=== PATIENT | male | born 1940 | race Two or more races ===

== ENCOUNTER 2020-03-22 06:42 | Emergency (ER) | payer MEDICARE, OTHER, SELFPAY ==
[2020-03-22 06:43] VITALS: BP 212/82; PULSE 89; RESP 24; TEMP 37; O2SAT 97; BMI 35.6
[2020-03-22 06:47] VITALS: O2SAT 99
--- NOTE | 2020-03-22 07:03 | RAD_ITS ---
STUDY: X-RAY CHEST REASON FOR EXAM: Male, 79 years old new onset of shortness of breath this morning. History of COPD. TECHNIQUE: Single AP portable view of the chest. COMPARISON: October 03, 2016. FINDINGS: Cardiac monitoring leads are present. The lungs are hyperexpanded with prominence of bronchovascular markings. There is a nodular opacity left lung base measuring There is no demonstrated pleural abnormality. There is mild cardiac enlargement. Normal mediastinum and crystal. There is prominence of the pulmonary hilar arteries with peripheral pulmonary vascular congestion, suggesting pulmonary hypertension. There is atherosclerotic calcification of the aortic arch with tortuosity. There are diffuse degenerative changes of the visualized thoracic spine. Normal visualized ribs, clavicles, and shoulders. There is no demonstrated abnormality of the visualized soft tissue structures of the upper abdomen. RAD/Chest 1 View (Portable) IMPRESSION: Cardiomegaly and pulmonary edema. Electronically Signed: Barbara Daigle MD at 8:24 EDT , Service support ,
--- NOTE | 2020-03-22 07:03 | EKG12_ITS ---
Test Reason : DYSRHYTHMIA Blood Pressure : / mmHG Vent. Rate : 072 BPM Atrial Rate : 072 BPM P-R Int : 248 ms QRS Dur : 108 ms QT Int : 384 ms P-R-T Axes : 006 -59 087 degrees QTc Int : 420 ms Sinus rhythm with 1st degree A-V block Left axis deviation Abnormal ECG Confirmed by ALEJANDRA DEWITT, ALEIDA ([id number]), desk editor ROD MAYO ([id number]) on 03/25/2020 9:21:57 AM Referred By: Confirmed By:ALEIDA ROBERTS MD
[2020-03-22 07:10] LABS: Absolute Lymphocyte Count 3.96 X10^3/uL (0.83-4.51); Absolute Neutrophil Count 7.3 X10^3/uL (2.0-7.7); Basophil% 0.8 % (0-1); Eosinophil# 0.45 X10^3/uL; Eosinophils% 3.5 % (0-5); Hematocrit 40.1 % (40-54); Hemoglobin 12.3 g/dL (13.0-16.5); Lymphocyte # 3.96 X10^3/ul (4.0); Lymphocyte % 30.8 % (19-41); Mean Corp Hgb Conc 30.7 g/dL (32-36); Mean Corpuscular Hgb 24.6 pg (27.0-32.0); Mean Corpuscular Volume 80.4 fL (80-94); Mean Platelet Vol. 9.8 fl (6.2-12.0); Monocyte# 1.03 X10^3/uL; NRBC Flagged by Analyzer 0 % (0-5); Neutrophil # 7.27 X10^3/uL (2.7-7.7); Neutrophil % 56.6 % (47-70); Platelet Count 346 K/mm3 (150-450); RBC Distribution Width SD 51.8 fl (35.1-43.9); Red Blood Count 4.99 M/mm3 (4.6-6.2); White Blood Count 12.9 K/mm3 (4.4-11.0)
--- NOTE | 2020-03-22 07:13 | ED.VIS.GEN ---
History of Present Illness Chief Complaint: Shortness of Breath Informant: Patient Onset: Today Narrative: Patient presents to the emergency room with his for the chief complaint of shortness of breath. Patient states that approximately 0530 hours he got up to urinate when he got back to bed he was significantly short of breath. It did not resolve with rest. He notes no change in his chronic cough. He has a history of COPD diabetes obstructive sleep apnea and peripheral vascular disease. Denies any fevers. He denies any chest pain. No significant leg swelling. Patient denies vomiting diarrhea. He denies any URI symptoms. He has not yet taken his morning medications but his brought them with him. These include his hypertensive medications. Past Medical History - Allergies and Home Meds Allergies/Adverse Reactions: Allergies colesevelam HCl [From WelChol] Adverse Reaction (Verified 06/30/18 13:31) Unknown Awmpdix-Rtk-Axk Reductase Inhibitor Adverse Reaction (Verified 06/30/18 13:31) Other LEG CRAMPS Primary Care Physician: Joe Vicente III, MD [Primary Care Provider] - As soon as possible Surgical History: - - right carotid artery surgey. Smoking Status: Current every day smoker - Family History Maternal Family History: Family History (Last Updated 06/30/18 @ 13:30 by Zahraa Londono) Sister Cancer Family History: Reports: - - hepatitis Paternal Family History: Family History (Last Updated 06/30/18 @ 13:30 by Zahraa Londono) Sister Cancer Family History: Reports: - - father had ruptured appendix Review of Systems General: Denies: Chills, Fever, Sweats Eyes: Denies: Visual changes - bilaterally, Diplopia ENT: Denies: Rhinorrhea, Sore throat Cardiovascular: Denies: Chest pain, Palpitations Respiratory: Reports: Dyspnea, Cough - No change from baseline, Dyspnea on exertion Gastrointestinal: Denies: Abdominal pain, Nausea, Vomiting, Diarrhea, Melena, Hematochezia Genitourinary: Denies: Dysuria, Hematuria, Frequency Musculoskeletal: Denies: Back pain, Extremity Pain Skin: Denies: Rash, Wounds Neurological: Denies: Headache, Weakness, Numbness Physical Exam Vital Signs/Narrative: Vital Signs Temp Pulse Resp BP Pulse Ox 03/22/20 06:43 98.6 F 89 24 H 212/82 H 97 Inital Vital Signs reviewed: Yes General: Well nourished, Well developed, Obese, No Acute Distress Head: Normocephalic, Atraumatic Eyes: Perrl, EOMI ENT: Moist mucous membranes, No rhinorrhea Neck: Supple, Nontender Cardiovascular: Regular rate, Regular rhythm, No murmurs Respiratory: CTA bilaterally, Chest nontender, Decreased Air Movement, - - Patient is tachypneic but not in distress he has conversational dyspnea Abdomen: Soft, Nontender, Nondistended, Normal bowel sounds Back: Nontender, Normal Inspection Extremities: Nontender, No edema Skin: Normal color, No rash Neurological: Alert, Oriented x3, Cranial nerves II-XII grossly intact, Normal Strength, Normal Sensation Psychological: Normal affect, Normal Mood Diagnostic/Tx/Re-eval Clinical Impression(s) from Imaging Studies Chest X-Ray 03/22/20 07:03 IMPRESSION: Cardiomegaly and pulmonary edema. Electronically Signed: Barbara Daigle MD at 8:24 EDT , Service support , Chest CTA 03/22/20 08:25 IMPRESSION: 1. No CTA demonstrated pulmonary embolism or arterial dissection. 2. Right lower lobe pulmonary nodule. Suggest follow-up as per Fleischner criteria. 3. Cardiomegaly and mild pulmonary edema. Electronically Signed: Barbara Daigle MD at 9:57 EDT , Service support , Laboratory Last Values WBC 12.9 K/mm3 (4.4-11.0) H 03/22/20 06:30 RBC 4.99 M/mm3 (4.6-6.2) 03/22/20 06:30 Hgb 12.3 g/dL (13.0-16.5) L 03/22/20 06:30 Hct 40.1 % (40-54) 03/22/20 06:30 MCV 80.4 fL (80-94) 03/22/20 06:30 MCH 24.6 pg (27.0-32.0) L 03/22/20 06:30 MCHC 30.7 g/dL (32-36) L 03/22/20 06:30 RDW Std Deviation 51.8 fl (35.1-43.9) H 03/22/20 06:30 RDW Coeff of Teresa 18.0 % (11.6-14.6) H 03/22/20 06:30 Plt Count 346 K/mm3 (150-450) 03/22/20 06:30 MPV 9.8 fl (6.2-12.0) 03/22/20 06:30 Immature Gran % (Auto) 0.300 % (0.0-0.9) 03/22/20 06:30 Neut % (Auto) 56.6 % (47-70) 03/22/20 06:30 Lymph % (Auto) 30.8 % (19-41) 03/22/20 06:30 Clark % (Auto) 8.0 % (0-10) 03/22/20 06:30 Eos % (Auto) 3.5 % (0-5) 03/22/20 06:30 Baso % (Auto) 0.8 % (0-1) 03/22/20 06:30 Absolute Neuts (auto) 7.3 X10^3/uL (2.0-7.7) 03/22/20 06:30 Absolute Lymphs (auto) 3.96 X10^3/uL (0.83-4.51) 03/22/20 06:30 Nucleated RBC % 0 % (0-5) 03/22/20 06:30 PT 13.0 SECONDS (11.7-14.9) 03/22/20 06:30 INR 1.0 03/22/20 06:30 APTT 31.9 Seconds (24.1-36.2) 03/22/20 06:30 Sodium 139 mmol/L (136-145) 03/22/20 07:45 Potassium 4.8 mmol/L (3.5-5.1) 03/22/20 07:45 Chloride 107 mmol/L (98-107) 03/22/20 07:45 Carbon Dioxide 24.0 mmol/L (21.0-32.0) 03/22/20 07:45 Anion Gap 8 (5-15) 03/22/20 07:45 BUN 14 mg/dL (7-18) 03/22/20 07:45 Creatinine 0.85 mg/dL (0.70-1.30) 03/22/20 07:45 Estim Creat Clear Calc 77.51 ml/min 03/22/20 07:45 Est GFR (MDRD) Af Amer 112 mL/min (>60) 03/22/20 07:45 Est GFR (MDRD) Non-Af 93 mL/min (>60) 03/22/20 07:45 BUN/Creatinine Ratio 16.5 RATIO (10-20) 03/22/20 07:45 Glucose 134 mg/dL (74-106) H 03/22/20 07:45 Calcium 8.7 mg/dL (8.5-10.1) 03/22/20 07:45 Total Bilirubin 0.20 mg/dL (0.20-1.00) 03/22/20 07:45 Direct Bilirubin 0.07 mg/dL (0.00-0.30) 03/22/20 07:45 AST 8 U/L (15-37) L 03/22/20 07:45 ALT 15 U/L (16-61) L 03/22/20 07:45 Alkaline Phosphatase 79 U/L (45-117) 03/22/20 07:45 Troponin I < 0.015 ng/mL (<0.045) 03/22/20 07:45 B-Natriuretic Peptide 58.0 pg/mL (0-100) 03/22/20 06:30 Total Protein 7.2 g/dL (6.4-8.2) 03/22/20 07:45 Albumin 3.2 g/dL (3.2-5.0) 03/22/20 07:45 Globulin 4.0 g/dL (2.2-4.2) 03/22/20 07:45 POC Glucose 124 mg/dL (70-110) H 03/22/20 10:27 - EKG Initial EKG Interpretation: Sinus Rhythm - EKG demonstrates a sinus rhythm with a first-degree AV block at a rate of 72 without concerning features of ACS or ectopy - Medical Decision Making She received breathing treatments. He was given his home antihypertensive medications. Blood pressure is down. Lung aeration is improved he ambulated down the hallway and around the emergency department maintain his oxygen saturation until he got back to his room when he dropped to 89%. Because the patient has sudden onset of symptoms and it appeared to be an unprovoked COPD exacerbation a CTA was ordered. No pulmonary embolism or infiltrates were seen. There was a pulmonary nodule that was noted. The patient is asking to be discharged home because he is hungry. When I write him albuterol MDI because he does not have a rescue inhaler. He may benefit from having nebulizer machine at home. ED Disposition - Plan for ED Patient: Disposition: Home or Assisted Living Diagnosis: COPD exacerbation, Hypertension, Pulmonary nodule Instructions: ED COPD Flare, ED Nodule Solitary Pulmonary Prescriptions: Prednisone [Deltasone] 60 mg PO DAILY #15 tab Transmission Status: Pending to [facility] Albuterol Inhaler [Ventolin Hfa] 2 puff INHALATION Q4H PRN PRN #1 inhaler PRN Reason: Wheezing Transmission Status: Pending to [facility] Referrals: Joe Vicente III, MD [Primary Care Provider] - As soon as possible Additional Instructions: Please call your doctor on Tuesday morning and discuss whether or not you would qualify for a albuterol nebulizer machine. Return if worsening or concerns. Many people with COPD exacerbations do require admission into the hospital.
[2020-03-22 07:20] VITALS: PULSE 68; RESP 24; RESP 26; O2SAT 96
[2020-03-22] MEDS: Ipratropium/Albuterol Sulfate 3 ML AMPUL.NEB INHALATION (07:20)
[2020-03-22 07:22] LABS: Partial Thromboplast Time 31.9 Seconds (24.1-36.2)
[2020-03-22] MEDS: Albuterol 2.5 MG/3 ML VIAL.NEB. INHALATION ×3 (07:36)
--- NOTE | 2020-03-22 07:37 | NURSING ---
GREEN TOP HEMOLIZED
[2020-03-22 08:19] LABS: AST(SGOT) 8 U/L (15-37); Alanine Aminotransfer ALT/SGPT 15 U/L (16-61); Albumin, Serum 3.2 g/dL (3.2-5.0); Alkaline Phosphatase 79 U/L (45-117); Anion Gap 8 (5-15); BUN 14 mg/dL (7-18); BUN/Creat Ratio 16.5 RATIO (10-20); Bilirubin, Direct 0.07 mg/dL (0.00-0.30); Calcium,Total 8.7 mg/dL (8.5-10.1); Chloride 107 mmol/L (98-107); Creatinine, Serum 0.85 mg/dL (0.70-1.30); EST Glomerular Filtration Rate 93 mL/min (>60); Est Glom Filt Rate - Afr Amer 112 mL/min (>60); Estimated Creatinine Clearance 77.51 ml/min; Glucose 134 mg/dL (74-106); Potassium 4.8 mmol/L (3.5-5.1); Protein, Total 7.2 g/dL (6.4-8.2); Sodium Level 139 mmol/L (136-145)
--- NOTE | 2020-03-22 08:25 | CT_ITS ---
STUDY: CTA CHEST REASON FOR EXAM: Male, 79 years old patient with shortness of breath and COPD. RADIATION DOSAGE (If Supplied By Facility): CTDIvol = ( 16.22 ) mGy, DLP = ( 532.63 ) mGycm TECHNIQUE: The examination was performed with the intravenous administration of 100 ml of Isovue 370. Post-processing of the angiographic images was performed, with multiplanar reformation and 3D reconstruction. Individualized dose optimization techniques were used for this CT. COMPARISON: Prior comparison studies are not available for review at this time. FINDINGS: Normal enhancement of the main pulmonary artery and right and left pulmonary arteries. Normal enhancement of the bilateral peripheral pulmonary arteries. There is no demonstrated pulmonary embolism. There is prominence of the main pulmonary arteries without peripheral pulmonary vascular congestion, suggesting pulmonary hypertension. There is atherosclerotic calcification of the aortic arch with tortuosity. Maximum transverse dimension of the ascending thoracic aorta is 4.0 cm. There is no demonstrated aortic dissection. Normal heart and pericardium. There are multiple hyperplastic mediastinal lymph nodes, which are within normal size limits, and with normal morphology. Normal hilar regions. Normal visualized trachea and bronchi. The lungs are hyper expanded, with flattening of the hemidiaphragms. There are multiple patchy lucencies scattered in the upper lobes consistent with centrilobular emphysema. There is groundglass attenuation in the posterior segments of the lower lobes that may present dependent atelectasis. There is a right lower lobe pulmonary nodule measuring approximately 10 mm in size best seen on axial image #71. There appears to be some interstitial thickening in both lower lobes as well. The curvilinear opacities in the right middle lobe versus patchy airspace disease. Normal pleura. Normal chest wall structures. There are degenerative changes of thoracic spine. There is reflux of contrast into the hepatic veins suggesting pulmonary congestion. CT/CTA Chest W/WO Contrast IMPRESSION: 1. No CTA demonstrated pulmonary embolism or arterial dissection. 2. Right lower lobe pulmonary nodule. Suggest follow-up as per Fleischner criteria. 3. Cardiomegaly and mild pulmonary edema. Electronically Signed: Barbara Daigle MD at 9:57 EDT , Service support ,
--- NOTE | 2020-03-22 08:49 | CPS ---
x3 Albuterol given to pt. in ED as well
[2020-03-22 09:44] VITALS: BP 144/52; PULSE 70; RESP 22; O2SAT 100
[2020-03-22 10:13] VITALS: O2SAT 95
[2020-03-22 10:31] LABS: Bedside Glucose 124 mg/dL (70-110)
[2020-03-22] MEDS: MethylPREDNISolone 125 MG/2 ML Vial IV (10:56)
[2020-03-22 11:05] VITALS: BP 142/75; PULSE 68; RESP 19; O2SAT 94
== END 2020-03-22 11:06 | disposition home or self-care (01) ==
PROVIDERS: Emergency Provider Emergency Medicine; PCP Family Medicine
DX: J44.1 Chronic obstructive pulmonary disease with (acute) exacerbation (principal); I10 Essential (primary) hypertension; R91.1 Solitary pulmonary nodule; E11.51 Type 2 diabetes mellitus with diabetic peripheral angiopathy without gangrene; F17.200 Nicotine dependence, unspecified, uncomplicated; E66.9 Obesity, unspecified
CPT/HCPCS: 71045; 71275; 80048; 80076; 82962; 83880; 84484; 85025; 85610; 85730; 93005; 94640; 96374; 99251; 99285; J7030; Q9967; A4216; G0463

== ENCOUNTER 2021-03-17 18:58 | Emergency (ER) | payer MEDICARE, OTHER, SELFPAY ==
[2021-03-17 18:58] VITALS: BP 163/75; PULSE 81; RESP 16; TEMP 36.6; O2SAT 96; BMI 35.9
--- NOTE | 2021-03-17 20:21 | EDS_ITS ---
HPI History of Present Illness Chief Complaint: Abn Labs Narrative Narrative: 80-year-old male with past medical history of COPD, hypertension, diabetes presenting for evaluation due to elevated potassium level. Patient states he does not have any symptoms of anything. He did routine lab work at his doctor's office and was told to come to the ER because his potassium was elevated. He is wearing his baseline O2 via nasal cannula. He denies chest pain, palpitations, shortness of breath, fever, chills, nausea, vomiting. He denies dizziness and lightheadedness. [facility] Medical History Abdominal aortic aneurysm (AAA) Carotid stenosis, bilateral COPD (chronic obstructive pulmonary disease) Diabetes historyright carotid endarterectomy HTN (hypertension) Obesity (BMI 30-39.9) PAD (peripheral artery disease) Peripheral arterial occlusive disease Tobacco use disorder Home Medications mikal Nixon B. lactis 1 ea PO DAILY 12/23/15 [History Last Taken Unknown] ascorbic acid (vitamin C) 1,000 mg PO DAILY@0800 12/23/15 [History Last Taken Unknown] cholecalciferol (vitamin D3) 2,000 unit PO DAILY 12/23/15 [History Last Taken Unknown] sxkfmrphgj-JG-HH-acetaminophen 1 ea PO QHS 12/23/15 [History Last Taken Unknown] esomeprazole magnesium 22.3 mg PO DAILY 12/23/15 [History Last Taken 12/25/15 08:30] exenatide 10 mcg SUBCUT BID 12/23/15 [History Last Taken Unknown] folic acid 0.8 mg PO QWEEK 12/23/15 [History Last Taken 10/03/16] insulin lispro 36 unit SQ DINNER 12/23/15 [History Last Taken Unknown] insulin lispro 36 unit SQ LUNCH 12/23/15 [History Last Taken Unknown] metformin 850 mg PO TIDCM 12/23/15 [History Last Taken Unknown] rosuvastatin 1 tab PO QWEEK 10/04/16 [History Last Taken Unknown] carvedilol 12.5 mg PO BID #60 tab 10/05/16 [Rx Last Taken Unknown] docusate sodium 100 mg PO BID PRN #30 cap 10/05/16 [Rx Last Taken Unknown] doxycycline monohydrate 100 mg PO BID #8 cap 10/05/16 [Rx Last Taken Unknown] insulin NPH isoph U-100 human 60 unit SQ DAILY #0 10/05/16 [Rx Last Taken Unknown] ipratropium-albuterol 3 ml INHALATION Q4H.RT #90 ampul.neb 10/05/16 [Rx Last Taken Unknown] oseltamivir 75 mg PO BID 6 Days cap 10/05/16 [Rx Last Taken Unknown] prednisone 40 mg PO DAILY@0800 #10 tab 10/05/16 [Rx Last Taken Unknown] ramipril 20 mg PO BID #0 10/05/16 [Rx Last Taken 12/25/15 08:30] albuterol sulfate 2 puff INHALATION Q4H PRN PRN #1 inhaler 03/22/20 [Rx Last Taken Unknown] prednisone 60 mg PO DAILY #15 tab 03/22/20 [Rx Last Taken Unknown] Allergy/AdvReac Type Severity Reaction Status Date / Time colesevelam HCl AdvReac Unknown Verified 06/30/18 13:31 [From WelChol] Jholhbn-Bye-Xjr Reductase AdvReac Other Verified 06/30/18 13:31 Inhibitor Family History Sister Cancer ovarian Surgical History history anal fissurectomy History of bilateral cataract extraction History of right-sided carotid endarterectomy Social History Smoking Status: Current every day smoker tobacco type: cigarettes alcohol intake: never substance use type: does not use ROS ROS ED Constitutional Constitutional ED: Denies chills, fever(s) or sweats Eyes Eyes: Denies blurry vision or change in vision ENT ENT ED: Denies ear pain, rhinorrhea or sore throat Cardiovascular Cardiovascular: Denies chest pain, palpitations or racing heartbeat Respiratory/Chest Respiratory/Chest: Denies cough, dyspnea or sputum Gastrointestinal Gastrointestinal: Denies abdominal pain, constipation, diarrhea or vomiting Genitourinary Genitourinary ED: Denies dysuria, hematuria or urinary frequency Musculoskeletal Musculoskeletal: Denies arthralgias, myalgias or neck pain Integumentary Denies abscess, Abrasions or rash Neurologic Neurologic: Denies headache(s), paresthesias or weakness Psychiatric Psychiatric: Denies anxiety, depression, suicidal ideation or suicidal thoughts Endocrine Endocrinology: Denies polydipsia or polyuria EXAM Physical Exam Const Vital Signs: 03/17/21 18:58 03/17/21 20:43 03/17/21 21:11 Temperature 97.9 F Temperature Source Temporal Pulse Rate 81 82 Respiratory Rate 16 26 H Respiratory Effort Normal Respiratory Pattern Normal Blood Pressure 163/75 H Blood Pressure Mean 104 Pulse Ox 96 96 Oxygen Delivery Method Nasal Cannula Nasal Cannula Oxygen Flow Rate (L/min) 4 4 Positive well nourished General Appearance ED: NAD HEENT Reports moist mucous membranes Negative for trauma Eyes PERRL and EOMs intact bilaterally Resp normal respiratory effort and clear to auscultation bilaterally Cardio regular rate and regular rhythm Extremity normal to inspection General Extremety ED: Negative for tenderness Neuro oriented x3 Sensorium / Orientation: alert Psych mental status grossly normal Skin no rashes or lesions noted and no wounds MDM MDM MDM Narrative Medical decision making narrative: Patient presenting asymptomatically for elevated potassium of 6.0. This is on routine lab work. Patient has a follow- up with his primary care physician on Tuesday. Repeat lab work here shows that his potassium is 5.5. EKG is interpreted by myself shows a sinus rhythm at 79 bpm with first-degree AV block which is similar to previous EKG March 22, 2020. There are no peaked T waves. I offered him IV fluids and Kayexalate however he declines fluids and wants to go home. I did speak with Dr. Cintron who recommended that he at least take Kayexalate. He will follow up with him outpatient and adjust his medications. I did have a conversation with the patient about what his primary care said and he is amenable to this plan. Impression: 1. Hyperkalemia Lab Data Labs: Laboratory Results - last 24 hr 03/17/21 03/17/21 20:24 20:24 WBC 11.7 H RBC 5.03 Hgb 11.3 L Hct 38.8 L MCV 77.1 L MCH 22.5 L MCHC 29.1 L RDW Std Deviation 53.1 H RDW Coeff of Teresa 19.6 H Plt Count 379 MPV 9.6 Immature Gran % (Auto) 0.400 Neut % (Auto) 59.0 Lymph % (Auto) 28.3 Calloway % (Auto) 8.3 Eos % (Auto) 3.2 Baso % (Auto) 0.8 Absolute Neuts (auto) 6.9 Absolute Lymphs (auto) 3.32 Nucleated RBC % 0 Sodium 136 Potassium 5.5 H Chloride 104 Carbon Dioxide 23.0 Anion Gap 9 BUN 14 Creatinine 1.01 Estim Creat Clear Calc 62.24 Est GFR (MDRD) Af Amer 92 Est GFR (MDRD) Non-Af 76 BUN/Creatinine Ratio 13.9 Glucose 185 H Calcium 9.3 Discharge Plan Triage Chief Complaint: Abn Labs ED Provider: Collin Ramirez Dx/Rx/DC Orders Instructions: ED Hyperkalemia Prescriptions: No Action metformin 850 MG tablet 850 mg PO TIDCM RF: 0 ascorbic acid (vitamin C) 500 MG tablet 1,000 mg PO DAILY@0800 RF: 0 esomeprazole magnesium 22.3 MG capsule,delayed release(DR/EC) 22.3 mg PO DAILY RF: 0 insulin lispro 100 UNIT/ML insulin pen 36 unit SQ DINNER RF: 0 insulin lispro 100 UNIT/ML insulin pen 36 unit SQ LUNCH RF: 0 exenatide 10 MCG/0.04 ML syringe 10 mcg subcut BID RF: 0 folic acid 0.8 MG capsule 0.8 mg PO QWEEK RF: 0 cholecalciferol (vitamin D3) 1,000 UNIT tablet 2,000 unit PO DAILY RF: 0 L.acidoph, paracasei,B. lactis 1 EACH capsule 1 ea PO DAILY RF: 0 eolyhkbilz-VZ-SK-acetaminophen 1 EACH capsule, sequential 1 ea PO QHS RF: 0 rosuvastatin 20 MG tablet 1 tab PO QWEEK RF: 0 carvedilol 12.5 MG tablet 12.5 mg PO BID Qty: 60 RF: 0 doxycycline monohydrate 100 MG capsule 100 mg PO BID Qty: 8 RF: 0 oseltamivir 75 MG capsule 75 mg PO BID 6 Days RF: 0 docusate sodium 100 MG capsule 100 mg PO BID PRN (Reason: Constipation) Qty: 30 RF: 0 insulin NPH isoph U-100 human 100 UNIT/ML insulin pen 60 unit SQ DAILY Qty: 0 RF: 0 ramipril 10 MG capsule 20 mg PO BID Qty: 0 RF: 0 ipratropium-albuterol 3 ML solution for nebulization 3 ml Inhalation Q4H.RT Qty: 90 RF: 0 prednisone 20 MG tablet 40 mg PO DAILY@0800 Qty: 10 RF: 0 prednisone 20 MG tablet 60 mg PO DAILY Qty: 15 RF: 0 albuterol sulfate 1 INHALER inhaler 2 puff inhalation Q4H PRN PRN (Reason: Wheezing) Qty: 1 RF: 0 Primary Care Provider: Rufino Cintron Referrals: Rufino Cintron [Primary Care Provider] - Disposition Disposition: Home, self care
[2021-03-17 20:30] LABS: Absolute Lymphocyte Count 3.32 X10^3/uL (0.83-4.51); Absolute Neutrophil Count 6.9 X10^3/uL (2.0-7.7); Basophil# 0.09 X10^3/uL; Basophil% 0.8 % (0-1); Eosinophil# 0.38 X10^3/uL; Eosinophils% 3.2 % (0-5); Hematocrit 38.8 % (40-54); Hemoglobin 11.3 g/dL (13.0-16.5); Lymphocyte # 3.32 X10^3/ul (0.83-4.51); Lymphocyte % 28.3 % (19-41); Mean Corp Hgb Conc 29.1 g/dL (32-36); Mean Corpuscular Hgb 22.5 pg (27.0-32.0); Mean Corpuscular Volume 77.1 fL (80-94); Mean Platelet Vol. 9.6 fl (6.2-12.0); Monocyte# 0.97 X10^3/uL; Monocyte% 8.3 % (0-10); NRBC Flagged by Analyzer 0 % (0-5); Neutrophil # 6.92 X10^3/uL (2.7-7.7); Platelet Count 379 K/mm3 (150-450); RBC Distribution Width CV 19.6 % (11.6-14.6); RBC Distribution Width SD 53.1 fl (35.1-43.9); Red Blood Count 5.03 M/mm3 (4.6-6.2); White Blood Count 11.7 K/mm3 (4.4-11.0)
[2021-03-17 20:43] LABS: Anion Gap 9 (5-15); BUN 14 mg/dL (7-18); BUN/Creat Ratio 13.9 RATIO (10-20); Calcium,Total 9.3 mg/dL (8.5-10.1); Chloride 104 mmol/L (98-107); Creatinine, Serum 1.01 mg/dL (0.70-1.30); EST Glomerular Filtration Rate 76 mL/min (>60); Est Glom Filt Rate - Afr Amer 92 mL/min (>60); Estimated Creatinine Clearance 62.24 ml/min; Glucose 185 mg/dL (74-106); Potassium 5.5 mmol/L (3.5-5.1); Sodium Level 136 mmol/L (136-145)
--- NOTE | 2021-03-17 20:59 | EKG12_ITS ---
Test Reason : DYSRHYTHMIA Blood Pressure : / mmHG Vent. Rate : 079 BPM Atrial Rate : 079 BPM P-R Int : 266 ms QRS Dur : 094 ms QT Int : 370 ms P-R-T Axes : 074 -63 093 degrees QTc Int : 424 ms Sinus rhythm with 1st degree A-V block Left axis deviation T wave abnormality, consider lateral ischemia Abnormal ECG Confirmed by ALEJANDRA DEWITT, ALEIDA ([id number]), photograph editor ROD MAYO ([id number]) on 03/19/2021 10:06:59 AM Referred By: SANTOS Confirmed By:ALEIDA ROBERTS MD
[2021-03-17 21:11] VITALS: PULSE 82; RESP 26; O2SAT 96
[2021-03-17] MEDS: Sodium Polystyrene Sulfonate 15 GM/60 ML UDC 30 GM PO (21:56)
== END 2021-03-17 21:56 | disposition home or self-care (01) ==
PROVIDERS: Emergency Provider Student in an Organized Health Care Education/Training Program
DX: E87.5 Hyperkalemia (principal); J44.9 Chronic obstructive pulmonary disease, unspecified; I10 Essential (primary) hypertension; E11.51 Type 2 diabetes mellitus with diabetic peripheral angiopathy without gangrene; E66.9 Obesity, unspecified; F17.210 Nicotine dependence, cigarettes, uncomplicated; Z99.81 Dependence on supplemental oxygen; Z79.4 Long term (current) use of insulin; Z79.899 Other long term (current) drug therapy
CPT/HCPCS: 80048; 85025; 93005; 99283; A4216

== ENCOUNTER → 2021-04-13 08:37 | Outpatient (CLI) | payer MEDICARE, OTHER, SELFPAY ==
[2021-03-17 18:58] VITALS: BMI 35.9
[2021-04-13 11:11] LABS: Absolute Lymphocyte Count 3.25 X10^3/uL (0.83-4.51); Absolute Neutrophil Count 8.3 X10^3/uL (2.0-7.7); Basophil# 0.08 X10^3/uL; Basophil% 0.6 % (0-1); Eosinophil# 0.31 X10^3/uL; Eosinophils% 2.4 % (0-5); Hematocrit 35.2 % (40-54); Hemoglobin 10.3 g/dL (13.0-16.5); Lymphocyte # 3.25 X10^3/ul (0.83-4.51); Lymphocyte % 25.2 % (19-41); Mean Corp Hgb Conc 29.3 g/dL (32-36); Mean Corpuscular Hgb 22.5 pg (27.0-32.0); Mean Corpuscular Volume 76.9 fL (80-94); Mean Platelet Vol. 9.4 fl (6.2-12.0); Monocyte# 0.92 X10^3/uL; Monocyte% 7.1 % (0-10); NRBC Flagged by Analyzer 0 % (0-5); Neutrophil # 8.27 X10^3/uL (2.7-7.7); Neutrophil % 64.3 % (47-70); Platelet Count 350 K/mm3 (150-450); RBC Distribution Width CV 19.2 % (11.6-14.6); RBC Distribution Width SD 52.2 fl (35.1-43.9); Red Blood Count 4.58 M/mm3 (4.6-6.2); White Blood Count 12.9 K/mm3 (4.4-11.0)
[2021-04-13 11:41] LABS: Anion Gap 11 (5-15); BUN 14 mg/dL (7-18); BUN/Creat Ratio 12.3 RATIO (10-20); Calcium,Total 8.5 mg/dL (8.5-10.1); Chloride 104 mmol/L (98-107); Creatinine, Serum 1.14 mg/dL (0.70-1.30); EST Glomerular Filtration Rate 66 mL/min (>60); Est Glom Filt Rate - Afr Amer 80 mL/min (>60); Glucose 268 mg/dL (74-106); Potassium 4.9 mmol/L (3.5-5.1); Sodium Level 134 mmol/L (136-145)
[2021-04-13 16:03] LABS: Vitamin B12 251 pg/mL (211-911); Vitamin D,25 Hydroxy 34.8 ng/mL
[2021-04-13 17:00] LABS: BNP,B-Type NATRIURETIC PEPTIDE 80.8 pg/mL (0-100)
== END ==
PROVIDERS: Visit Provider Family Medicine
DX: I50.9 Heart failure, unspecified (principal); E03.9 Hypothyroidism, unspecified; E55.9 Vitamin D deficiency, unspecified; E53.8 Deficiency of other specified B group vitamins; E87.5 Hyperkalemia
CPT/HCPCS: 36415; 80048; 82306; 82607; 83880; 84443; 85025

== ENCOUNTER → 2021-05-06 09:35 | Outpatient (CLI) | payer MEDICARE, OTHER, SELFPAY ==
[2021-05-06 11:45] LABS: Absolute Lymphocyte Count 2.72 X10^3/uL (0.83-4.51); Absolute Neutrophil Count 8.7 X10^3/uL (2.0-7.7); Basophil# 0.08 X10^3/uL; Basophil% 0.6 % (0-1); Eosinophil# 0.31 X10^3/uL; Eosinophils% 2.5 % (0-5); Hematocrit 37.8 % (40-54); Hemoglobin 10.8 g/dL (13.0-16.5); Lymphocyte # 2.72 X10^3/ul (0.83-4.51); Lymphocyte % 21.6 % (19-41); Mean Corp Hgb Conc 28.6 g/dL (32-36); Mean Corpuscular Hgb 22.3 pg (27.0-32.0); Mean Corpuscular Volume 77.9 fL (80-94); Mean Platelet Vol. 9.4 fl (6.2-12.0); Monocyte# 0.76 X10^3/uL; NRBC Flagged by Analyzer 0 % (0-5); Neutrophil # 8.65 X10^3/uL (2.7-7.7); Neutrophil % 68.9 % (47-70); Platelet Count 356 K/mm3 (150-450); RBC Distribution Width CV 19.2 % (11.6-14.6); RBC Distribution Width SD 53.3 fl (35.1-43.9); Red Blood Count 4.85 M/mm3 (4.6-6.2); White Blood Count 12.6 K/mm3 (4.4-11.0)
[2021-05-06 12:20] LABS: Ferritin 9 ng/mL (26-388); Iron 32 ug/dL (65-175); Iron Binding Capacity,Total 420 ug/dL (250-450)
== END ==
PROVIDERS: Referring Provider Family Medicine; Visit Provider Family Medicine
DX: D64.9 Anemia, unspecified (principal)
CPT/HCPCS: 36415; 82728; 82746; 83540; 83550; 85025

== ENCOUNTER → 2021-06-12 08:52 | Outpatient (CLI) | payer MEDICARE, OTHER, SELFPAY ==
[2021-06-12 10:38] LABS: Cholesterol 101 mg/dL (200); High Density Lipoprotein 36 mg/dL; Triglycerides 120 mg/dL; Very Low Density Lipoprotein 24 mg/dL (5-40)
[2021-06-12 10:49] LABS: Microalbumin:Creatinine Ratio 258.1 mg/g CRE (<30 mg/g CRE)
[2021-06-12 12:39] LABS: Hemoglobin A1c 7.5 % (3.8-5.6)
== END ==
PROVIDERS: Visit Provider Family Medicine
DX: E11.29 Type 2 diabetes mellitus with other diabetic kidney complication (principal); R80.9 Proteinuria, unspecified; E78.2 Mixed hyperlipidemia
CPT/HCPCS: 36415; 80061; 82043; 82570; 83036

== ENCOUNTER → 2021-06-29 10:12 | Outpatient (CLI) | payer MEDICARE, OTHER, SELFPAY ==
[2021-06-29 11:38] LABS: Absolute Lymphocyte Count 2.95 X10^3/uL (0.83-4.51); Absolute Neutrophil Count 7.4 X10^3/uL (2.0-7.7); Basophil# 0.09 X10^3/uL; Basophil% 0.8 % (0-1); Differential Indicated SCAN CRITERIA MET; Eosinophil# 0.31 X10^3/uL; Eosinophils% 2.7 % (0-5); Hematocrit 41.2 % (40-54); Hemoglobin 12.1 g/dL (13.0-16.5); Lymphocyte # 2.95 X10^3/ul (0.83-4.51); Lymphocyte % 25.5 % (19-41); Mean Corp Hgb Conc 29.4 g/dL (32-36); Mean Corpuscular Hgb 24.7 pg (27.0-32.0); Mean Corpuscular Volume 84.1 fL (80-94); Mean Platelet Vol. 10.2 fl (6.2-12.0); Monocyte# 0.74 X10^3/uL; Monocyte% 6.4 % (0-10); NRBC Flagged by Analyzer 0 % (0-5); Neutrophil # 7.42 X10^3/uL (2.7-7.7); Neutrophil % 64.3 % (47-70); POSITIVE MORPHOLOGY YES; Platelet Count 282 K/mm3 (150-450); RBC Distribution Width CV 22.8 % (11.6-14.6); RBC Distribution Width SD 68.6 fl (35.1-43.9); White Blood Count 11.6 K/mm3 (4.4-11.0)
[2021-06-29 12:02] LABS: Anisocytosis 1+; Macrocytosis RARE; Platelet Estimate ADEQUATE (ADEQ)
[2021-06-30 12:03] LABS: Anion Gap 11 (5-15); BUN 15 mg/dL (7-18); Calcium,Total 8.7 mg/dL (8.5-10.1); Chloride 105 mmol/L (98-107); Creatinine, Serum 0.94 mg/dL (0.70-1.30); EST Glomerular Filtration Rate 83 mL/min (>60); Est Glom Filt Rate - Afr Amer 100 mL/min (>60); Glucose 269 mg/dL (74-106); Potassium 4.7 mmol/L (3.5-5.1); Sodium Level 138 mmol/L (136-145)
== END ==
DX: E11.29 Type 2 diabetes mellitus with other diabetic kidney complication (principal); R80.9 Proteinuria, unspecified; D64.9 Anemia, unspecified; Z79.4 Long term (current) use of insulin
CPT/HCPCS: 36415; 80048; 85025

== ENCOUNTER 2021-10-04 15:24 | Inpatient (IN) | payer MEDICARE, OTHER, SELFPAY ==
[2021-10-04] VITALS (15 sets, daily range): BP systolic 152–164; BP diastolic 49–80; PULSE 64–74; RESP 14–33; TEMP 36.6–37.1; O2SAT 86–99; BMI 37.3; BMI 39.7
--- NOTE | 2021-10-04 15:42 | EKG12_ITS ---
Test Reason : SOB Blood Pressure : / mmHG Vent. Rate : 073 BPM Atrial Rate : 073 BPM P-R Int : 384 ms QRS Dur : 088 ms QT Int : 386 ms P-R-T Axes : 073 -66 107 degrees QTc Int : 425 ms Sinus rhythm with 1st degree A-V block Left axis deviation Nonspecific T wave abnormality Abnormal ECG POOR R WAVE PROGRESSION Confirmed by EVI DEWITT, YISSEL ([id number]), editorial intern ANISA CARRILLO ([id number]) on 10/07/2021 10:38:03 AM Referred By: JANNETTE Confirmed By:YISSEL STEVE MD
--- NOTE | 2021-10-04 15:45 | RAD_ITS ---
STUDY: X-RAY CHEST REASON FOR EXAM: Male, 80 years old. SOB TECHNIQUE: 1 view COMPARISON: 03/22/2020 FINDINGS: Cardiomegaly. Small to moderate-sized bilateral pleural effusions. Bilateral lower lung airspace opacities, likely atelectasis. Trachea midline. No pneumothorax. Multilevel thoracic spondylosis. RAD/Chest 1 View (Portable) IMPRESSION: Developing CHF. Electronically Signed: Ten Peterson MD at 16:15 EST Tel , Service support ,
[2021-10-04 15:48] LABS: Absolute Lymphocyte Count 3.15 X10^3/uL (0.83-4.51); Absolute Neutrophil Count 10.1 X10^3/uL (2.0-7.7); Basophil# 0.08 X10^3/uL; Basophil% 0.6 % (0-1); Eosinophils% 1.4 % (0-5); Hematocrit 41.2 % (40-54); Hemoglobin 12.7 g/dL (13.0-16.5); Lymphocyte # 3.15 X10^3/ul (0.83-4.51); Lymphocyte % 21.8 % (19-41); Mean Corp Hgb Conc 30.8 g/dL (32-36); Mean Corpuscular Hgb 26.2 pg (27.0-32.0); Mean Corpuscular Volume 84.9 fL (80-94); Mean Platelet Vol. 10.4 fl (6.2-12.0); Monocyte# 0.88 X10^3/uL; Monocyte% 6.1 % (0-10); NRBC Flagged by Analyzer 0 % (0-5); Neutrophil # 10.05 X10^3/uL (2.7-7.7); Neutrophil % 69.6 % (47-70); Platelet Count 331 K/mm3 (150-450); RBC Distribution Width CV 18.1 % (11.6-14.6); RBC Distribution Width SD 54.3 fl (35.1-43.9); Red Blood Count 4.85 M/mm3 (4.6-6.2); White Blood Count 14.4 K/mm3 (4.4-11.0)
[2021-10-04 16:01] LABS: Anion Gap 8 (5-15); BUN 21 mg/dL (7-18); BUN/Creat Ratio 20.4 RATIO (10-20); Calcium,Total 9.1 mg/dL (8.5-10.1); Chloride 111 mmol/L (98-107); Creatinine, Serum 1.03 mg/dL (0.70-1.30); EST Glomerular Filtration Rate 74 mL/min (>60); Est Glom Filt Rate - Afr Amer 90 mL/min (>60); Estimated Creatinine Clearance 61.03 ml/min; Glucose 239 mg/dL (74-106); Potassium 5.1 mmol/L (3.5-5.1); Sodium Level 142 mmol/L (136-145)
--- NOTE | 2021-10-04 17:19 | ED.VIS.DYS ---
HPI History of Present Illness Chief Complaint: Shortness of Breath Narrative Narrative: 80-year-old male presenting with shortness of breath x3 days. He admits to a history of COPD, diabetes, hypertension. He states he does not have a history of congestive heart failure and denies any cardiac issues however he does see a earthmoving plant operator. He states he was previously on a water pill that his potassium was very elevated and he was taken off of this. Patient is not having chest pain. He does have lower extremity edema which is worsening. Patient has shortness of breath with any movement. He wears 5 L of oxygen at baseline and is requiring more than this. [facility] Medical History Abdominal aortic aneurysm (AAA) Carotid stenosis, bilateral COPD (chronic obstructive pulmonary disease) Diabetes historyright carotid endarterectomy HTN (hypertension) Obesity (BMI 30-39.9) PAD (peripheral artery disease) Peripheral arterial occlusive disease Sleep apnea Tobacco use disorder Home Medications mikal Nixon B. lactis 1 ea PO DAILY 12/23/15 [History Last Taken Unknown] ascorbic acid (vitamin C) 1,000 mg PO DAILY@0800 12/23/15 [History Last Taken Unknown] cholecalciferol (vitamin D3) 2,000 unit PO DAILY 12/23/15 [History Last Taken Unknown] esomeprazole magnesium 20 mg PO DAILY 12/23/15 [History Last Taken 12/25/15 08:30] exenatide 10 mcg SUBCUT BID 12/23/15 [History Last Taken Unknown] folic acid 0.8 mg PO SUWE 12/23/15 [History Last Taken 10/03/16] insulin lispro 17 unit SQ LUNCH 12/23/15 [History Last Taken Unknown] insulin lispro 34 unit SQ DINNER 12/23/15 [History Last Taken Unknown] metformin 850 mg PO TIDCM 12/23/15 [History Last Taken Unknown] rosuvastatin 10 mg PO DAILY 10/04/16 [History Last Taken Unknown] amlodipine 10 mg PO DAILY 10/04/21 [History Last Taken Unknown] carvedilol 25 mg PO DAILY 10/04/21 [History Last Taken Unknown] coenzyme Q10 [Co Q-10] 200 mg PO DAILY 10/04/21 [History Last Taken Unknown] cyanocobalamin (vitamin B-12) [Vitamin B-12] 1,000 mcg PO DAILY 10/04/21 [History Last Taken Unknown] docusate sodium 100 mg PO TID 10/04/21 [History Last Taken Unknown] ferrous sulfate [FeroSul] 325 mg PO DAILY 10/04/21 [History Last Taken Unknown] hydrochlorothiazide 25 mg PO DAILY 10/04/21 [History Last Taken Unknown] insulin glargine [Lantus Solostar U-100 Insulin] 60 unit SUBCUT LUNCH 10/04/21 [History Last Taken Unknown] insulin lispro [Humalog KwikPen Insulin] 17 unit SUBCUT BREAKFAST 10/04/21 [History Last Taken Unknown] isosorbide mononitrate 30 mg PO DAILY 10/04/21 [History Last Taken Unknown] levothyroxine 50 mcg PO DAILY 10/04/21 [History Last Taken Unknown] ramipril 10 mg PO DAILY 10/04/21 [History Last Taken Unknown] simethicone [Gas-X] 80 mg PO QHS 10/04/21 [History Last Taken Unknown] spironolactone 25 mg PO QODAY 10/04/21 [History Last Taken Unknown] tamsulosin 0.4 mg PO DAILY 10/04/21 [History Last Taken Unknown] umeclidinium-vilanterol [Anoro Ellipta] 1 inh INHALATION DAILY 10/04/21 [History Last Taken Unknown] Allergy/AdvReac Type Severity Reaction Status Date / Time colesevelam HCl AdvReac Unknown Verified 10/04/21 15:30 [From WelChol] Rpyufgw-SHQ-DpC Reductase AdvReac Other Verified 10/04/21 15:30 Inhibitor [Plnssec-Jjx-Jrc Reductase Inhibitor] Family History Sister Cancer ovarian Surgical History history anal fissurectomy History of bilateral cataract extraction History of right-sided carotid endarterectomy Social History Smoking Status: Current every day smoker tobacco type: cigarettes alcohol intake: never substance use type: does not use ROS ROS ED Constitutional Constitutional ED: Denies chills or fever(s) Eyes Eyes: Denies blurry vision or diplopia ENT ENT ED: Denies rhinorrhea or sore throat Cardiovascular Cardiovascular: Denies chest pain or palpitations Respiratory/Chest Respiratory/Chest: Reports cough, dyspnea and dyspnea on exertion Gastrointestinal Gastrointestinal: Denies abdominal pain, nausea or vomiting Genitourinary Genitourinary ED: Denies dysuria or hematuria Musculoskeletal Musculoskeletal: Denies arthralgias or myalgias Integumentary Reports other Details: Lower extremity edema Neurologic Neurologic: Denies headache(s) or paresthesias Psychiatric Psychiatric: Denies anxiety or depression EXAM Physical Exam Const Vital Signs: 10/04/21 15:26 10/04/21 15:32 10/04/21 15:33 Temperature 97.9 F Temperature Source Temporal Pulse Rate 74 Respiratory Rate 25 H Respiratory Effort Short of Breath Respiratory Pattern Tachypnea Blood Pressure 156/52 H Blood Pressure Mean 86 Pulse Ox 98 86 Oxygen Delivery Method Non-Rebreather Room Air Non-Rebreather Oxygen Flow Rate (L/min) 15 10 Fraction of Inspired Oxygen (FIO2) 10/04/21 15:44 10/04/21 16:24 10/04/21 16:57 Temperature 98.4 F Temperature Source Oral Pulse Rate 74 Respiratory Rate 24 H 19 H Respiratory Effort Respiratory Pattern Blood Pressure 162/61 H Blood Pressure Mean 94 Pulse Ox 97 90 93 Oxygen Delivery Method Non-Rebreather Nasal Cannula Venturi Mask Oxygen Flow Rate (L/min) 10 5 Fraction of Inspired Oxygen (FIO2) 50 10/04/21 17:33 10/04/21 18:08 10/04/21 18:14 Temperature 98.0 F Temperature Source Temporal Pulse Rate 72 64 71 Respiratory Rate 33 H 26 H Respiratory Effort Respiratory Pattern Tachypnea Blood Pressure 164/80 H 164/80 H Blood Pressure Mean 108 Pulse Ox 97 95 Oxygen Delivery Method Bi-pap Oxygen Flow Rate (L/min) Fraction of Inspired Oxygen (FIO2) 40 10/04/21 18:31 Temperature 98.0 F Temperature Source Temporal Pulse Rate 69 Respiratory Rate 25 H Respiratory Effort Respiratory Pattern Blood Pressure 155/59 H Blood Pressure Mean 91 Pulse Ox 96 Oxygen Delivery Method Bi-pap Oxygen Flow Rate (L/min) Fraction of Inspired Oxygen (FIO2) Positive well nourished and obese Constitutional Narrative: Tachypneic and visibly short of breath. Able to speak in short sentences. General Appearance ED: Negative for pallor Nutritional Appearance: obese HEENT Reports moist mucous membranes atraumatic Eyes PERRL and EOMs intact bilaterally Neck no lymphadenopathy and supple Resp Auscultation: rhonchi; Negative for wheezes Cardio regular rate and regular rhythm Extremity General Extremety ED: Yes edema; Negative for tenderness General Extremity: edema Psych mental status grossly normal Thought Process: normal thought process Skin General Skin Exam: Negative for jaundice or pallor MDM MDM MDM Narrative Medical decision making narrative: Patient arrives with shortness of breath. He does have lower extremity edema and is requiring more oxygen than his baseline 5 L. EKG is obtained which shows a sinus rhythm with a ventricular rate of 73 bpm without sign of ischemic change. There is a first-degree AV block. Chest x-ray on my interpretation shows pulmonary edema. Radiologist does agree. CBC shows a slight leukocytosis of 14.1. Hemoglobin is 12.7. Platelets 331. Renal function and electrolytes are within normal limits. Glucose is 239 without an anion gap. High-sensitivity troponin is 11. BNP elevated at 164.8. Nitropaste placed on the patient's chest and he is given 40 mg Lasix. Mittal catheter was placed for I's and O's. Patient unable to stand and walk to use the restroom. Patient was placed on BiPAP and appears to be doing well. Patient was discussed with the hospitalist for admission. Impression: 1. New onset CHF 2. Hypoxic respiratory failure Lab Data Labs: Laboratory Results - last 24 hr 10/04/21 10/04/21 10/04/21 15:31 15:31 15:31 WBC 14.4 H RBC 4.85 Hgb 12.7 L Hct 41.2 MCV 84.9 MCH 26.2 L MCHC 30.8 L RDW Std Deviation 54.3 H RDW Coeff of Teresa 18.1 H Plt Count 331 MPV 10.4 Immature Gran % (Auto) 0.500 Neut % (Auto) 69.6 Lymph % (Auto) 21.8 [facility] % (Auto) 6.1 Eos % (Auto) 1.4 Baso % (Auto) 0.6 Absolute Neuts (auto) 10.1 H Absolute Lymphs (auto) 3.15 Nucleated RBC % 0 Sodium 142 Potassium 5.1 Chloride 111 H Carbon Dioxide 23.0 Anion Gap 8 BUN 21 H Creatinine 1.03 Estim Creat Clear Calc 61.03 Est GFR (MDRD) Af Amer 90 Est GFR (MDRD) Non-Af 74 BUN/Creatinine Ratio 20.4 H Glucose 239 H Calcium 9.1 Troponin I High Sens 11 B-Natriuretic Peptide 10/04/21 15:31 WBC RBC Hgb Hct MCV MCH MCHC RDW Std Deviation RDW Coeff of Teresa Plt Count MPV Immature Gran % (Auto) Neut % (Auto) Lymph % (Auto) [facility] % (Auto) Eos % (Auto) Baso % (Auto) Absolute Neuts (auto) Absolute Lymphs (auto) Nucleated RBC % Sodium Potassium Chloride Carbon Dioxide Anion Gap BUN Creatinine Estim Creat Clear Calc Est GFR (MDRD) Af Amer Est GFR (MDRD) Non-Af BUN/Creatinine Ratio Glucose Calcium Troponin I High Sens B-Natriuretic Peptide 164.8 H Radiography Diagnostic Testing: Clinical Impression(s) from Imaging Studies Chest X-Ray 10/04/21 15:45 IMPRESSION: Developing CHF. Electronically Signed: Ten Peterson MD at 16:15 EST Tel , Service support , Discharge Plan Triage Chief Complaint: Shortness of Breath ED Provider: Collin Ramirez Dx/Rx/DC Orders Primary Care Provider: Rufino Cinrton
--- NOTE | 2021-10-04 17:34 | CPS ---
PATIENT USES CPAP AT HOME WITH 3.5 lpm OXYGEN. HE THINKS IT'S 14 CMH20. ALSO WEARS 5 LITERS OF 02 DURING THE DAYTIME.
[2021-10-04 18:05] LABS: Troponin-I HS 11 pg/mL (3.0-78.0)
[2021-10-04] MEDS: Furosemide 40 MG/4 ML Vial IV (18:08)
[2021-10-04] MEDS: Nitroglycerin Oint 1 INCH PACKET TD (18:08)
[2021-10-04 18:10] LABS: BNP,B-Type NATRIURETIC PEPTIDE 164.8 pg/mL (0-100)
--- NOTE | 2021-10-04 18:24 | HP.PCM.HOS_ITS ---
HPI - General General Date of Admission: 10/04/21 HPI Narrative RAMON MORENO, is a 80 M who with an extensive PMH as outlined who presents via the ED on 10/04/2021 with a complaint of shortness of breath which had been going on for 3 days prior to admission. He had previously been on a water pill, but his potassium was elevated so he was taken off of this. I suspect his potassium was rather low though. He denied any chest pain but had associated lower extremity edema which was worsening. He does have chronic respiratory failure due to COPD and is on 5L of oxygen at baseline, but had been requiring more than this. EKG showed first degree AV block, and CXR showed evidence of pulmonary edema. BMP showed sodium of 142, K of 5.1, Cr of 1.03; CBC showed wbc of 14.4, Hb of 12.7 and platelets of 331. BNP was 64.8. He is on BIPAP. He is being admitted to be managed for acute on chronic hypoxic respiratory failure likely due to acute heart failure of unknown EF. [facility] Medical History Abdominal aortic aneurysm (AAA) Carotid stenosis, bilateral COPD (chronic obstructive pulmonary disease) Diabetes historyright carotid endarterectomy HTN (hypertension) Obesity (BMI 30-39.9) PAD (peripheral artery disease) Peripheral arterial occlusive disease Sleep apnea Tobacco use disorder Home Medications Tiffani, mikal,Alan. lactis 1 ea PO DAILY 12/23/15 [History Last Taken Unknown] ascorbic acid (vitamin C) 1,000 mg PO DAILY@0800 12/23/15 [History Last Taken Unknown] cholecalciferol (vitamin D3) 2,000 unit PO DAILY 12/23/15 [History Last Taken Unknown] esomeprazole magnesium 20 mg PO DAILY 12/23/15 [History Last Taken 12/25/15 08:30] exenatide 10 mcg SUBCUT BID 12/23/15 [History Last Taken Unknown] folic acid 0.8 mg PO SUWE 12/23/15 [History Last Taken 10/03/16] insulin lispro 17 unit SQ LUNCH 12/23/15 [History Last Taken Unknown] insulin lispro 34 unit SQ DINNER 12/23/15 [History Last Taken Unknown] metformin 850 mg PO TIDCM 03/22/16 [History Last Taken Unknown] rosuvastatin 10 mg PO DAILY 10/04/16 [History Last Taken Unknown] amlodipine 10 mg PO DAILY 10/04/21 [History Last Taken Unknown] carvedilol 25 mg PO DAILY 10/04/21 [History Last Taken Unknown] coenzyme Q10 [Co Q-10] 200 mg PO DAILY 10/04/21 [History Last Taken Unknown] cyanocobalamin (vitamin B-12) [Vitamin B-12] 1,000 mcg PO DAILY 10/04/21 [History Last Taken Unknown] docusate sodium 100 mg PO TID 10/04/21 [History Last Taken Unknown] ferrous sulfate [FeroSul] 325 mg PO DAILY 10/04/21 [History Last Taken Unknown] hydrochlorothiazide 25 mg PO DAILY 10/04/21 [History Last Taken Unknown] insulin glargine [Lantus Solostar U-100 Insulin] 60 unit SUBCUT LUNCH 10/04/21 [History Last Taken Unknown] insulin lispro [Humalog KwikPen Insulin] 17 unit SUBCUT BREAKFAST 10/04/21 [History Last Taken Unknown] isosorbide mononitrate 30 mg PO DAILY 10/04/21 [History Last Taken Unknown] levothyroxine 50 mcg PO DAILY 10/04/21 [History Last Taken Unknown] ramipril 10 mg PO DAILY 10/04/21 [History Last Taken Unknown] simethicone [Gas-X] 80 mg PO QHS 10/04/21 [History Last Taken Unknown] spironolactone 25 mg PO QODAY 10/04/21 [History Last Taken Unknown] tamsulosin 0.4 mg PO DAILY 10/04/21 [History Last Taken Unknown] umeclidinium-vilanterol [Anoro Ellipta] 1 inh INHALATION DAILY 10/04/21 [History Last Taken Unknown] Allergy/AdvReac Type Severity Reaction Status Date / Time colesevelam HCl AdvReac Unknown Verified 10/04/21 15:30 [From WelChol] Aqjmrnd-XRM-XvK Reductase AdvReac Other Verified 10/04/21 15:30 Inhibitor [Guysqdd-Mfr-Fxs Reductase Inhibitor] Family History Sister Cancer ovarian Surgical History history anal fissurectomy History of bilateral cataract extraction History of right-sided carotid endarterectomy Social History Smoking Status: Current every day smoker tobacco type: cigarettes alcohol intake: never substance use type: does not use ROS Constitutional Constitutional: Reports fatigue; Denies anorexia, chills, fever(s), malaise or weakness Eyes Eyes: Denies change in vision ENT HEENT: Denies dysphagia, headache(s), nasal congestion, nasal discharge, sinus pressure or sore throat Cardiovascular Cardiovascular: Reports dyspnea on exertion, edema, orthopnea and paroxysmal nocturnal dyspnea; Denies chest pain, lightheadedness, palpitations, rapid heart rate or syncope Respiratory/Chest Respiratory/Chest: Reports shortness of breath at rest and shortness of breath with exertion; Denies cough, dyspnea, productive cough or wheezing Gastrointestinal Gastrointestinal: Denies abdominal pain, constipation, diarrhea, nausea or vomiting Genitourinary Genitourinary: Denies burning urination or dysuria Musculoskeletal Musculoskeletal: Denies arthralgias Neurologic Neurologic: Denies confusion Psychiatric Psychiatric: Denies anxiety Endocrine Endocrinology: Denies change in body appearance Hematologic/Lymphatic Hematologic/Lymphatic: Denies anemia Vital Signs Vital Signs Vital Signs: 10/04/21 15:26 10/04/21 15:32 10/04/21 15:33 Temperature 97.9 F Temperature Source Temporal Pulse Rate 74 Respiratory Rate 25 H Respiratory Effort Short of Breath Respiratory Pattern Tachypnea Blood Pressure 156/52 H Blood Pressure Mean 86 Pulse Ox 98 86 Oxygen Delivery Method Non-Rebreather Room Air Non-Rebreather Oxygen Flow Rate (L/min) 15 10 Fraction of Inspired Oxygen (FIO2) 10/04/21 15:44 10/04/21 16:24 10/04/21 16:57 Temperature 98.4 F Temperature Source Oral Pulse Rate 74 Respiratory Rate 24 H 19 H Respiratory Effort Respiratory Pattern Blood Pressure 162/61 H Blood Pressure Mean 94 Pulse Ox 97 90 93 Oxygen Delivery Method Non-Rebreather Nasal Cannula Venturi Mask Oxygen Flow Rate (L/min) 10 5 Fraction of Inspired Oxygen (FIO2) 50 10/04/21 17:33 10/04/21 18:08 10/04/21 18:14 Temperature 98.0 F Temperature Source Temporal Pulse Rate 72 64 71 Respiratory Rate 33 H 26 H Respiratory Effort Respiratory Pattern Tachypnea Blood Pressure 164/80 H 164/80 H Blood Pressure Mean 108 Pulse Ox 97 95 Oxygen Delivery Method Bi-pap Oxygen Flow Rate (L/min) Fraction of Inspired Oxygen (FIO2) 40 Weight Weight: 260 lb Body Mass Index (BMI) 37.3 Physical Exam Const alert, oriented x3 and no apparent distress General Appearance: cooperative HEENT normocephalic, head/scalp atraumatic, hearing grossly normal bilaterally and moist oral mucous membranes Eyes PERRL, EOMs intact bilaterally and conjunctivae normal Neck no lymphadenopathy, supple and no JVD Resp Resp Narrative: diminished breath sounds bibasally, no wheezes or crackles. On BIPAP. GI normal to inspection, nondistended, normoactive bowel sounds, soft to palpation, non-tender and non-distended Extremity normal to inspection and full ROM Extremity Narrative: bilateral 2+ pitting edema Peripheral Pulses: Yes pulses 2+ throughout Skin no rashes or lesions noted Neuro oriented x3, CN's II-XII intact bilaterally and moves all extremities Sensorium / Orientation: awake and alert Psych affect normal Results Lab / Micro Data Result Diagrams: 10/04/21 15:31 10/04/21 15:31 Labs: Laboratory Results - last 24 hr 10/04/21 15:31: WBC 14.4 H, RBC 4.85, Hgb 12.7 L, Hct 41.2, MCV 84.9, MCH 26.2 L , MCHC 30.8 L, RDW Std Deviation 54.3 H, RDW Coeff of Teresa 18.1 H, Plt Count 331, MPV 10.4, Immature Gran % (Auto) 0.500, Neut % (Auto) 69.6, Lymph % (Auto) 21.8, [place] % (Auto) 6.1, Eos % (Auto) 1.4, Baso % (Auto) 0.6, Absolute Neuts (auto) 10.1 H, Absolute Lymphs (auto) 3.15, Nucleated RBC % 0 10/04/21 15:31: Sodium 142, Potassium 5.1, Chloride 111 H, Carbon Dioxide 23.0, Anion Gap 8, BUN 21 H, Creatinine 1.03, Estim Creat Clear Calc 61.03, Est GFR (MDRD) Af Amer 90, Est GFR (MDRD) Non-Af 74, BUN/Creatinine Ratio 20.4 H, Glucose 239 H, Calcium 9.1 10/04/21 15:31: Troponin I High Sens 11 10/04/21 15:31: B-Natriuretic Peptide 164.8 H Micro: Microbiology 10/04/21 16:15 Nasal Secretion SARS-CoV-2 Antigen (Rapid) - Final Radiology Impression Chest X-Ray 10/04/21 15:45 IMPRESSION: Developing CHF. Electronically Signed: Ten Peterson MD at 16:15 EST Tel , Service support , Assessment & Plan Assessment/Plan (1) Acute heart failure: (2) Respiratory failure, acute and chronic: PLAN: #Acute on chronic hypoxic respiratory failure likely due to acute heart failure with unknown EF * Admit to PCU. 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 * Chest x-ray showed evidence of pulmonary edema. EKG showed first-degree AV block * Start diuresing with IV Lasix 40 mg twice daily. Monitor intake and output. Fluid restriction 1500 cc daily. * Put on a 2 g low-sodium diet. * 2D echo ordered. * Wean off of BiPAP as tolerated * Cycle troponins. Initial Covid antigen test was negative. PCR test pending. * I do suspect patient likely has CHF as his medication include spironolactone and carvedilol. He states he is to be on a water pill but this was stopped because his potassium was high though I expect that it is the opposite with his potassium being low. #Type 2 diabetes mellitus: * On Lantus 60 units subcu for lunch and 34 units with dinner. * Insulin sliding scale. Accu-Cheks AC at bedtime. * check A1C * Also Metformin on ramipril and spironolactone * #Hypothyroidism: On Synthroid #Chronic respiratory failure due to COPD: * Usually on 5 L at home but now on BiPAP. Breathing treatments bronchodil ators. #History of right carotid endarterectomy: Stable. Not on statin due to history of allergy #Peripheral artery disease: Stable. #KELSEY: on BIPAP qhs #History of abdominal aortic aneurysm: stable. To follow up with PCP on outpatient basis. #Hypertension: on amlodipine nad carvedilol as well as ramipril #GERD: On PPI DVT prophylaxis: Lovenox CODE STATUS: Full code * Patient counseled extensively about different types of CODE STATUS including full code, DNR CCA and DNR CCA. Patient elects to be full code. Total bpxh-kv-qnlf time 16 minutes. Charges/Coding Visit Charges Inpatient E&M: 48573 Init Hosp L3 Procedures Hospitalists Procedures: 11780 Advncd Care Plan 30 Min
[2021-10-04 20:11] LABS: Bedside Glucose 81 mg/dL (70-110)
[2021-10-04 20:33] LABS: Troponin-I HS 12 pg/mL (3.0-78.0)
[2021-10-04 22:31] LABS: Troponin-I HS 15 pg/mL (3.0-78.0)
[2021-10-04] MEDS: Docusate Sodium 100 MG Capsule PO (23:11)
[2021-10-04] MEDS: Tamsulosin HCl 0.4 MG Capsule PO (23:21)
[2021-10-05] VITALS (16 sets, daily range): BP systolic 130–170; BP diastolic 50–63; PULSE 60–86; RESP 14–29; TEMP 36.4–37.2; O2SAT 87–95
--- NOTE | 2021-10-05 00:14 | NURSING ---
Pt called out stated he felt his blood sugar was low. Pts blood sugar was 35, pt given snacks and md notified for d50 orders. Pt given 1 amp d50. recheck was 189. pt stated that he felt better. Will continue to monitor.
--- NOTE | 2021-10-05 01:26 | PCM.PN.BLA ---
Progress Note Patient with hyperglycemia with blood glucose of 35. Hypoglycemic orders ordered. Stop all insulin orders. Trend Accu-Cheks.
[2021-10-05] MEDS: Dextrose 50%-Water 25 GM/50 ML DISP.SYRIN IV (01:28)
[2021-10-05 01:36] LABS: Bedside Glucose 35 mg/dL (70-110)
[2021-10-05 01:46] LABS: Bedside Glucose 189 mg/dL (70-110)
--- NOTE | 2021-10-05 01:50 | CPS ---
Reduced BIPAP settings per pt request and comfort
[2021-10-05 02:12] LABS: Troponin-I HS 16 pg/mL (3.0-78.0)
[2021-10-05 02:46] LABS: Bedside Glucose 138 mg/dL (70-110)
[2021-10-05 03:36] LABS: Bedside Glucose 133 mg/dL (70-110)
--- NOTE | 2021-10-05 04:07 | PCS.PANDOC ---
PANDEMIC DOCUMENTATION INITIATED: Date: 05/18/2021 Time: 190
[2021-10-05] MEDS: Levothyroxine 50 MCG Tablet PO (05:09)
[2021-10-05] MEDS: Docusate Sodium 100 MG Capsule PO ×2 (05:09→19:58)
--- NOTE | 2021-10-05 05:55 | ECHOD_ITS ---
Reason For Study: DYSPNEA/SOB Procedure This was a 2D Doppler, Color Flow transthoracic echocardiogram. The study was technically limited. The study was technically difficult. Due to body habitus, PT asked for exam to be stopped. Exam performed portable in patient room. Left Ventricle Normal LV size. Mild concentric left ventricular hypertrophy. Left ventricular systolic function is normal. The estimated ejection fraction is 55 %. Stage 1 diastolic dysfunction. No regional wall motion abnormalities noted. Right Ventricle Normal RV size. Normal systolic function. Great Vessels Calcified aortic root. Pericardium/Pleural No pericardial effusion. MMode/2D Measurements & Calculations LVIDd: 4.5 cm IVSd: 1.3 cm Ao root diam: 3.4 cm LVIDs: 3.1 cm LVPWd: 1.3 cm RVDd: 4.0 cm FS: 30.4 % LAV(MOD-bp): 57.9 ml LA A4 area: 19.6 cm2 LA dimension(2D): 4.2 cm LAV(MOD-bp) Indexed: 24.7 ml/m2 LAV(MOD-sp2): 60.7 ml LAV(MOD-sp4): 50.8 ml RA A4 area: 19.4 cm2 Time Measurements MV dec time: 0.20 sec Doppler Measurements & Calculations MV E max colt: 129.7 cm/sec Lat Peak E' Colt: 10.6 cm/sec Med Peak E' Colt: 8.4 cm/sec MV A max colt: 133.6 cm/sec E/E' lat: 12.3 E/E' med: 15.5 MV E/A: 0.97 Ao V2 max: 162.9 cm/sec LV V1 max: 149.4 cm/sec PA V2 max: 72.4 cm/sec Ao max P.6 mmHg LV V1 max P.9 mmHg ECHO/Echo Complete Interpretation Summary Normal LV size. Left ventricular systolic function is normal. The estimated ejection fraction is 55 %. Mild concentric left ventricular hypertrophy. Stage 1 diastolic dysfunction. The study was technically difficult. The study was technically limited. Ordering Physician: Eloisa Resendiz Referring Physician: Rufino Cintron Performed By: Zahraa Menard RDCS, RVT
[2021-10-05 06:18] LABS: Absolute Lymphocyte Count 2.76 X10^3/uL (0.83-4.51); Basophil# 0.08 X10^3/uL; Basophil% 0.5 % (0-1); Eosinophil# 0.15 X10^3/uL; Hemoglobin 11.2 g/dL (13.0-16.5); Lymphocyte # 2.76 X10^3/ul (0.83-4.51); Lymphocyte % 18.4 % (19-41); Mean Corp Hgb Conc 30.3 g/dL (32-36); Mean Platelet Vol. 9.9 fl (6.2-12.0); Monocyte# 0.91 X10^3/uL; Monocyte% 6.1 % (0-10); NRBC Flagged by Analyzer 0 % (0-5); Neutrophil # 11.01 X10^3/uL (2.7-7.7); Neutrophil % 73.6 % (47-70); Platelet Count 267 K/mm3 (150-450); RBC Distribution Width SD 54.7 fl (35.1-43.9)
[2021-10-05 06:30] LABS: Bedside Glucose 134 mg/dL (70-110)
[2021-10-05 06:38] LABS: Anion Gap 7 (5-15); BUN 21 mg/dL (7-18); BUN/Creat Ratio 23.7 RATIO (10-20); Calcium,Total 9.1 mg/dL (8.5-10.1); Chloride 108 mmol/L (98-107); Creatinine, Serum 0.89 mg/dL (0.70-1.30); EST Glomerular Filtration Rate 88 mL/min (>60); Est Glom Filt Rate - Afr Amer 107 mL/min (>60); Estimated Creatinine Clearance 68.41 ml/min; Glucose 130 mg/dL (74-106); Potassium 4.8 mmol/L (3.5-5.1); Sodium Level 138 mmol/L (136-145)
[2021-10-05] MEDS: Pantoprazole Sodium 20 MG Tablet PO (09:28)
[2021-10-05] MEDS: Cyanocobalamin 500 MCG Tablet 1000 MCG PO (09:28)
[2021-10-05] MEDS: Ascorbic Acid 500 MG Tablet 1000 MG PO (09:29)
[2021-10-05] MEDS: Carvedilol 25 MG Tablet PO (09:29)
[2021-10-05] MEDS: amLODIPine 10 MG Tablet PO (09:29)
[2021-10-05] MEDS: Ramipril 10 MG Capsule PO (09:29)
[2021-10-05] MEDS: Cholecalciferol (VIT D3) 25 MCG TABLET (1,000 UNITS) 50 MCG PO (09:29)
[2021-10-05] MEDS: Isosorbide Mononitrate 30 MG Tablet PO (09:29)
[2021-10-05] MEDS: Ferrous Sulfate 325 MG Tablet PO (09:29)
[2021-10-05] MEDS: Enoxaparin 40 MG/0.4 ML Syringe SC (09:30)
[2021-10-05] MEDS: Furosemide 40 MG/4 ML Vial IV ×2 (09:30→18:40)
[2021-10-05] MEDS: 0.9% Saline Lock 10 ML Syringe IV ×2 (09:41→18:33)
[2021-10-05 10:00] LABS: Bedside Glucose 198 mg/dL (70-110)
[2021-10-05] MEDS: Ipratropium/Albuterol Sulfate 3 ML AMPUL.NEB INHALATION ×3 (10:31→17:44)
[2021-10-05 11:41] LABS: Bedside Glucose 211 mg/dL (70-110)
--- NOTE | 2021-10-05 12:11 | PN.HOSP_ITS ---
Subjective Subjective Annual bit better today, still has significant edema in his lower extremities which she says is more severe than normal. Echo is still pending Objective Data Objective Data Vital Signs: Vital Signs Temp Pulse Resp BP Pulse Ox 97.6 F L 64 22 H 163/63 H 87 10/05/21 08:50 10/05/21 11:00 10/05/21 10:32 10/05/21 08:50 10/05/21 11:15 Oxygen Flow Rate (L/min) 10 Oxygen Delivery Method Nasal Cannula Weight: 269 lb 2.951 oz Body Mass Index (BMI) 39.7 Intake & Output: Intake and Output for Last 24 Hours 10/04/21 10/05/21 10/06/21 03:59 03:59 03:59 Intake Total 120 / 120 600 / 600 Output Total 1750 / 1750 1450 / 1450 Balance -1630 / -1630 -850 / -850 Lab / Micro Data Result Diagrams: 10/05/21 05:44 10/05/21 05:44 Labs: Laboratory Results - last 24 hr 10/04/21 15:31: WBC 14.4 H, RBC 4.85, Hgb 12.7 L, Hct 41.2, MCV 84.9, MCH 26.2 L , MCHC 30.8 L, RDW Std Deviation 54.3 H, RDW Coeff of Teresa 18.1 H, Plt Count 331, MPV 10.4, Immature Gran % (Auto) 0.500, Neut % (Auto) 69.6, Lymph % (Auto) 21.8, [place] % (Auto) 6.1, Eos % (Auto) 1.4, Baso % (Auto) 0.6, Absolute Neuts (auto) 10.1 H, Absolute Lymphs (auto) 3.15, Nucleated RBC % 0 10/04/21 15:31: Sodium 142, Potassium 5.1, Chloride 111 H, Carbon Dioxide 23.0, Anion Gap 8, BUN 21 H, Creatinine 1.03, Estim Creat Clear Calc 61.03, Est GFR (MDRD) Af Amer 90, Est GFR (MDRD) Non-Af 74, BUN/Creatinine Ratio 20.4 H, Glucose 239 H, Calcium 9.1 10/04/21 15:31: Troponin I High Sens 11 10/04/21 15:31: B-Natriuretic Peptide 164.8 H 10/04/21 18:33: COVID-19 (ARINA) Not Detected 10/04/21 19:56: Troponin I High Sens 12 10/04/21 19:58: POC Glucose 81 10/04/21 21:46: Troponin I High Sens 15 10/05/21 01:14: POC Glucose 35 L* 10/05/21 01:35: POC Glucose 189 H 10/05/21 01:42: Troponin I High Sens 16 10/05/21 02:38: POC Glucose 138 H 10/05/21 03:29: POC Glucose 133 H 10/05/21 05:11: POC Glucose 134 H 10/05/21 05:44: WBC 15.0 H, RBC 4.30 L, Hgb 11.2 L, Hct 37.0 L, MCV 86.0, MCH 26.0 L, MCHC 30.3 L, RDW Std Deviation 54.7 H, RDW Coeff of Teresa 18.0 H, Plt Count 267, MPV 9.9, Immature Gran % (Auto) 0.400, Neut % (Auto) 73.6 H, Lymph % (Auto) 18.4 L, [place] % (Auto) 6.1, Eos % (Auto) 1.0, Baso % (Auto) 0.5, Absolute Neuts (auto) 11.0 H, Absolute Lymphs (auto) 2.76, Nucleated RBC % 0 10/05/21 05:44: Sodium 138, Potassium 4.8, Chloride 108 H, Carbon Dioxide 23.0, Anion Gap 7, BUN 21 H, Creatinine 0.89, Estim Creat Clear Calc 68.41, Est GFR (MDRD) Af Amer 107, Est GFR (MDRD) Non-Af 88, BUN/Creatinine Ratio 23.7 H, Glucose 130 H, Calcium 9.1 10/05/21 09:51: POC Glucose 198 H 10/05/21 11:26: POC Glucose 211 H Micro: Microbiology 10/04/21 16:15 Nasal Secretion SARS-CoV-2 Antigen (Rapid) - Final Radiography Diagnostic Testing: Radiology Impression Chest X-Ray 10/04/21 15:45 IMPRESSION: Developing CHF. Electronically Signed: Ten Peterson MD at 16:15 EST Tel , Service support , Physical Exam Const alert, oriented x3 and no apparent distress General Appearance: cooperative HEENT normocephalic and moist oral mucous membranes Eyes PERRL, EOMs intact bilaterally and conjunctivae normal Neck supple and no JVD Resp normal respiratory effort, no retractions and no use of accessory muscles Auscultation: diminished lung sounds; Negative for crackles, rales, rhonchi or wheezes Cardio regular rate, regular rhythm, S1 normal heart sound, S2 normal heart sound and no murmurs GI soft to palpation, non-tender and non-distended; Negative for hepatosplenomegaly Extremity General Extremity: edema; Negative for clubbing or cyanosis Skin no rashes or lesions noted Neuro no focal motor deficits and no sensory deficits noted Psych affect normal Appearance: appropriate Assessment & Plan Assessment/Plan (1) Acute heart failure: (2) Respiratory failure, acute and chronic: PLAN: #Acute on chronic hypoxic respiratory failure likely due to acute heart failure with unknown EF * Admit to PCU. B ELEVATOR OPERATOR was 164 but patient is also obese so this may be falsely low. * Chest x-ray showed evidence of pulmonary edema. EKG showed first-degree AV block * Start diuresing with IV Lasix 40 mg twice daily. Monitor intake and output. Fluid restriction 1500 cc daily. * Put on a 2 g low-sodium diet. * 2D echo ordered. * Wean off of BiPAP as tolerated * Cycle troponins. Initial Covid antigen test was negative. PCR test negative. * Will hold off on all his Aldactone secondary to history of hyperkalemia. Continue with Lasix #Type 2 diabetes mellitus: * On Lantus 60 units subcu for lunch and 34 units with dinner, this was discontinued secondary to an episode of hypoglycemia * Insulin sliding scale. Accu-Cheks AC at bedtime. * check A1C #Hypothyroidism: On Synthroid #Chronic respiratory failure due to COPD: * Usually on 5 L at home but now on BiPAP. Breathing treatments bronchodilators. #History of right carotid endarterectomy: Stable. Not on statin due to history of allergy #Peripheral artery disease: Stable. #KELSEY: on BIPAP qhs #History of abdominal aortic aneurysm: stable. To follow up with PCP on outpatient basis. #Hypertension: on amlodipine and carvedilol as well as ramipril #GERD: On PPI DVT: Lovenox Charges/Coding Visit Charges Inpatient E&M: 16548 Subs Hosp L2
--- NOTE | 2021-10-05 13:00 | CASEMGMT ---
JOSE MIGUEL BLANC Face to Face with patient for initial transition planning/care coordination assessment. JOSE MIGUEL BLANC introduced self and role at [facility]. Patient lying in bed, alert and oriented, at bedside. Patient willing to participate in assessment and is able to answer all questions appropriately. Care providers, pharmacy, and demographics verified. Patient wishes to discharge home, with HHC. JOSE MIGUEL BLANC provided list of HHC. Patient and prefer [facility]. Patient states he has no further needs or concerns at this time. CM to follow for discharge planning needs that may arise. PCP: Abdulaziz Specialists: Arjun panel fitter; [facility] Eva Operations Forester Preferred Pharmacy: [facility] Insurance: [facility], [email or web address] Prescription Benefit: yes Living Will/HPOA: yes, Caitlin Little LNOK: Living Arrangements: Patient lives with in a split level home. No steps for patient to enter the home and patient states on main level of home. Transportation: DME/HHC: Patient has shower chair, grab bars, rollator, bipap, and home oxygen at 5lpm with portable concentrator through [employer]. Patient has had [facility] in the past. JOSE MIGUEL BLANC called [facility] and made referral for HHC at discharge. Disposition Plan: Patient to discharge home with HHC, family support, and follow-up plans in place. Ronda PEÑALOZA, RN, CM
--- NOTE | 2021-10-05 15:54 | CASEMGMT ---
Call from Mikaela at [facility] and she states they can accept pt for Tuesday SOC as pt is still currently on 10L nc at this time. CM to follow. Octavio GILLESPIE CM
[2021-10-05 18:26] LABS: Bedside Glucose 314 mg/dL (70-110)
[2021-10-05] MEDS: Azithromycin 250 MG Tablet 500 MG PO (18:32)
[2021-10-05] MEDS: Insulin Lispro 100 UNIT/ML INSULN.PEN SC ×2 (18:37→20:00)
[2021-10-05] MEDS: Tamsulosin HCl 0.4 MG Capsule PO (19:59)
--- NOTE | 2021-10-05 20:00 | NURSING ---
PT ASKS NOT TO BE AWOKEN OVERNIGHT.
--- NOTE | 2021-10-05 20:37 | NURSING ---
ASKED FOR HS MEDS AT THIS TIME TO PROMOTE SLEEP.
[2021-10-06] VITALS (17 sets, daily range): BP systolic 133–160; BP diastolic 49–69; PULSE 56–81; RESP 14–24; TEMP 36.4–36.8; O2SAT 85–95
[2021-10-06] MEDS: 0.9% Saline Lock 10 ML Syringe IV ×3 (05:37→11:55)
[2021-10-06] MEDS: Levothyroxine 50 MCG Tablet PO (05:37)
[2021-10-06 06:28] LABS: Absolute Neutrophil Count 9.7 X10^3/uL (2.0-7.7); Basophil# 0.02 X10^3/uL; Basophil% 0.2 % (0-1); Hematocrit 36.5 % (40-54); Hemoglobin 11.5 g/dL (13.0-16.5); Lymphocyte % 14.4 % (19-41); Mean Corp Hgb Conc 31.5 g/dL (32-36); Mean Corpuscular Hgb 26.1 pg (27.0-32.0); Mean Platelet Vol. 10.1 fl (6.2-12.0); Monocyte# 0.26 X10^3/uL; Monocyte% 2.2 % (0-10); NRBC Flagged by Analyzer 0 % (0-5); Neutrophil # 9.72 X10^3/uL (2.7-7.7); Neutrophil % 82.6 % (47-70); Platelet Count 283 K/mm3 (150-450); RBC Distribution Width CV 17.5 % (11.6-14.6); RBC Distribution Width SD 51.9 fl (35.1-43.9); White Blood Count 11.8 K/mm3 (4.4-11.0)
[2021-10-06] MEDS: Insulin Lispro 100 UNIT/ML INSULN.PEN SC ×3 (06:48→23:25)
[2021-10-06 07:00] LABS: Anion Gap 7 (5-15); BUN 25 mg/dL (7-18); BUN/Creat Ratio 24.5 RATIO (10-20); Chloride 102 mmol/L (98-107); Creatinine, Serum 1.02 mg/dL (0.70-1.30); EST Glomerular Filtration Rate 75 mL/min (>60); Est Glom Filt Rate - Afr Amer 91 mL/min (>60); Estimated Creatinine Clearance 59.69 ml/min; Glucose 342 mg/dL (74-106); Potassium 5.1 mmol/L (3.5-5.1); Sodium Level 134 mmol/L (136-145)
[2021-10-06 07:10] LABS: Bedside Glucose 334 mg/dL (70-110)
[2021-10-06] MEDS: Ipratropium/Albuterol Sulfate 3 ML AMPUL.NEB INHALATION ×4 (07:14→18:52)
[2021-10-06 07:16] LABS: Bedside Glucose 450 mg/dL (70-110)
[2021-10-06 07:16] LABS: Bedside Glucose > 500 mg/dL (70-110)
[2021-10-06] MEDS: Ascorbic Acid 500 MG Tablet 1000 MG PO (08:05)
[2021-10-06] MEDS: Ferrous Sulfate 325 MG Tablet PO (08:06)
[2021-10-06] MEDS: Pantoprazole Sodium 20 MG Tablet PO (08:06)
[2021-10-06] MEDS: Cyanocobalamin 500 MCG Tablet 1000 MCG PO (08:07)
[2021-10-06] MEDS: Cholecalciferol (VIT D3) 25 MCG TABLET (1,000 UNITS) 50 MCG PO (08:07)
[2021-10-06] MEDS: Ramipril 10 MG Capsule PO (08:08)
[2021-10-06] MEDS: Carvedilol 25 MG Tablet PO (08:08)
[2021-10-06] MEDS: Furosemide 40 MG/4 ML Vial IV (08:08)
[2021-10-06] MEDS: Isosorbide Mononitrate 30 MG Tablet PO (08:08)
[2021-10-06] MEDS: Azithromycin 250 MG Tablet 500 MG PO (08:09)
[2021-10-06] MEDS: amLODIPine 10 MG Tablet PO (08:09)
[2021-10-06] MEDS: Enoxaparin 40 MG/0.4 ML Syringe SC (08:09)
[2021-10-06] MEDS: Docusate Sodium 100 MG Capsule PO ×2 (11:54→20:20)
[2021-10-06] MEDS: Insulin Lispro 100 UNIT/ML INSULN.PEN 10 UNIT SC (12:21)
[2021-10-06] MEDS: Insulin Lispro 100 UNIT/ML INSULN.PEN 17 UNIT SC (12:22)
[2021-10-06 13:26] LABS: Bedside Glucose > 500 mg/dL (70-110)
[2021-10-06 15:55] LABS: Bedside Glucose > 500 mg/dL (70-110)
[2021-10-06 16:42] LABS: Glucose 729 mg/dL (74-106)
[2021-10-06] MEDS: Insulin Lispro 100 UNIT/ML INSULN.PEN 34 UNIT SC (17:17)
--- NOTE | 2021-10-06 18:19 | PN.HOSP_ITS ---
Subjective Subjective Breathing has improved from 10 L to 7 L nasal cannula, he is normally on 5 L. We will continue with diuresis as well as steroids Objective Data Objective Data Vital Signs: Vital Signs Temp Pulse Resp BP Pulse Ox 97.7 F L 81 18 153/65 H 94 10/06/21 14:00 10/06/21 15:12 10/06/21 15:12 10/06/21 14:00 10/06/21 14:00 Oxygen Flow Rate (L/min) [ 8 AMBULATING with Oxygen #2] Oxygen Flow Rate (L/min) [ 7 AMBULATING with Oxygen #1] Oxygen Flow Rate (L/min) [At 7 REST with Oxygen] Oxygen Flow Rate (L/min) 7 Oxygen Delivery Method Nasal Cannula Weight: 269 lb 2.951 oz Body Mass Index (BMI) 39.7 Intake & Output: Intake and Output for Last 24 Hours 10/05/21 10/06/21 10/07/21 03:59 03:59 03:59 Intake Total 120 / 120 1200 / 1200 480 / 480 Output Total 1750 / 1750 3325 / 3325 1350 / 1350 Balance -1630 / -1630 -2125 / -2125 -870 / -870 Lab / Micro Data Result Diagrams: 10/06/21 05:52 10/06/21 16:12 Labs: Laboratory Results - last 24 hr 10/05/21 17:34: POC Glucose 314 H 10/05/21 19:46: POC Glucose > 500 H* 10/05/21 19:47: POC Glucose 450 H 10/06/21 05:52: WBC 11.8 H, RBC 4.40 L, Hgb 11.5 L, Hct 36.5 L, MCV 83.0, MCH 26.1 L, MCHC 31.5 L, RDW Std Deviation 51.9 H, RDW Coeff of Teresa 17.5 H, Plt Count 283, MPV 10.1, Immature Gran % (Auto) 0.600, Neut % (Auto) 82.6 H, Lymph % (Auto) 14.4 L, [place] % (Auto) 2.2, Eos % (Auto) 0.0, Baso % (Auto) 0.2, Absolute Neuts (auto) 9.7 H, Absolute Lymphs (auto) 1.70, Nucleated RBC % 0 10/06/21 05:52: Sodium 134 L, Potassium 5.1, Chloride 102, Carbon Dioxide 25.0, Anion Gap 7, BUN 25 H, Creatinine 1.02, Estim Creat Clear Calc 59.69, Est GFR (MDRD) Af Amer 91, Est GFR (MDRD) Non-Af 75, BUN/Creatinine Ratio 24.5 H, Glucose 342 H, Calcium 9.0 10/06/21 06:46: POC Glucose 334 H 10/06/21 11:12: POC Glucose > 500 H* 10/06/21 15:49: POC Glucose > 500 H* 10/06/21 16:12: Glucose 729 H* Micro: Microbiology 10/04/21 16:15 Nasal Secretion SARS-CoV-2 Antigen (Rapid) - Final Physical Exam Const alert, oriented x3 and no apparent distress General Appearance: cooperative HEENT normocephalic and moist oral mucous membranes Eyes PERRL, EOMs intact bilaterally and conjunctivae normal Neck supple and no JVD Resp normal respiratory effort, no retractions and no use of accessory muscles Auscultation: diminished lung sounds; Negative for crackles, rales, rhonchi or wheezes Cardio regular rate, regular rhythm, S1 normal heart sound, S2 normal heart sound and no murmurs GI soft to palpation, non-tender and non-distended; Negative for hepatosplenomegaly Extremity General Extremity: edema; Negative for clubbing or cyanosis Skin no rashes or lesions noted Neuro no focal motor deficits and no sensory deficits noted Psych affect normal Appearance: appropriate Assessment & Plan Assessment/Plan (1) Acute heart failure: (2) Respiratory failure, acute and chronic: PLAN: #Acute on chronic hypoxic respiratory failure likely due to acute diastolic heart failure and COPD exacerbation * Admit to PCU. B HAZARD WASTE HANDLER was 164 but patient is also obese so this may be falsely low. * Chest x-ray showed evidence of pulmonary edema. EKG showed first-degree AV block * Continue diuresing with IV Lasix 40 mg twice daily. Monitor intake and output. Fluid restriction 1500 cc daily. * Put on a 2 g low-sodium diet. * 2D echo with an EF of 55% and stage I diastolic dysfunction * Wean off of BiPAP as tolerated * Cycle troponins. Initial Covid antigen test was negative. PCR test negative. * Will hold off on all his Aldactone secondary to history of hyperkalemia. Continue with Lasix * We will continue with breathing treatments as well as steroids secondary to the concern for possible COPD exacerbation #Type 2 diabetes mellitus: * He is now currently significantly hyperglycemic therefore will place him on Lantus 45 units twice daily and 20 units with meals, will make adjustments as necessary * Insulin sliding scale. Accu-Cheks AC at bedtime. * A1c in June was 7.5 #Hypothyroidism: On Synthroid #Chronic respiratory failure due to COPD: * Usually on 5 L at home but now on BiPAP. Breathing treatments bronchodila tors. #History of right carotid endarterectomy: Stable. Not on statin due to history of allergy #Peripheral artery disease: Stable. #KELSEY: on BIPAP qhs #History of abdominal aortic aneurysm: stable. To follow up with PCP on outpatient basis. #Hypertension: on amlodipine and carvedilol as well as ramipril #GERD: On PPI DVT: Lovenox Charges/Coding Visit Charges Inpatient E&M: 54865 Subs Hosp L2
[2021-10-06] MEDS: Tamsulosin HCl 0.4 MG Capsule PO (20:20)
--- NOTE | 2021-10-06 20:24 | NURSING ---
patient requesting medications early to get to bed.
[2021-10-06 22:02] LABS: Glucose 735 mg/dL (74-106)
[2021-10-07] VITALS (20 sets, daily range): BP systolic 131–158; BP diastolic 56–79; PULSE 60–88; RESP 14–23; TEMP 36.5–36.8; O2SAT 85–98
[2021-10-07 06:32] LABS: Absolute Lymphocyte Count 2.73 X10^3/uL (0.83-4.51); Absolute Neutrophil Count 10.6 X10^3/uL (2.0-7.7); Basophil# 0.04 X10^3/uL; Basophil% 0.3 % (0-1); Eosinophil# 0.09 X10^3/uL; Eosinophils% 0.6 % (0-5); Hematocrit 35.9 % (40-54); Hemoglobin 11.5 g/dL (13.0-16.5); Lymphocyte # 2.73 X10^3/ul (0.83-4.51); Lymphocyte % 18.4 % (19-41); Mean Corpuscular Hgb 26.6 pg (27.0-32.0); Mean Corpuscular Volume 83.1 fL (80-94); Monocyte# 1.39 X10^3/uL; Monocyte% 9.4 % (0-10); NRBC Flagged by Analyzer 0 % (0-5); Neutrophil # 10.55 X10^3/uL (2.7-7.7); Neutrophil % 70.9 % (47-70); Platelet Count 284 K/mm3 (150-450); RBC Distribution Width CV 17.3 % (11.6-14.6); RBC Distribution Width SD 51.6 fl (35.1-43.9); Red Blood Count 4.32 M/mm3 (4.6-6.2); White Blood Count 14.9 K/mm3 (4.4-11.0)
[2021-10-07] MEDS: Insulin Lispro 100 UNIT/ML INSULN.PEN SC ×4 (06:53→21:55)
[2021-10-07 06:59] LABS: Anion Gap 8 (5-15); BUN 30 mg/dL (7-18); BUN/Creat Ratio 30.5 RATIO (10-20); Calcium,Total 9.1 mg/dL (8.5-10.1); Chloride 104 mmol/L (98-107); Creatinine, Serum 0.98 mg/dL (0.70-1.30); EST Glomerular Filtration Rate 78 mL/min (>60); Est Glom Filt Rate - Afr Amer 95 mL/min (>60); Estimated Creatinine Clearance 62.12 ml/min; Glucose 205 mg/dL (74-106); Potassium 4.1 mmol/L (3.5-5.1); Sodium Level 139 mmol/L (136-145)
[2021-10-07 07:05] LABS: Bedside Glucose 166 mg/dL (70-110)
[2021-10-07 07:30] LABS: Bedside Glucose > 500 mg/dL (70-110)
[2021-10-07 07:30] LABS: Bedside Glucose > 500 mg/dL (70-110)
[2021-10-07] MEDS: Insulin Lispro 100 UNIT/ML INSULN.PEN 20 UNIT SC ×3 (08:29→16:59)
[2021-10-07] MEDS: Enoxaparin 40 MG/0.4 ML Syringe SC (08:54)
[2021-10-07] MEDS: Pantoprazole Sodium 20 MG Tablet PO (08:55)
[2021-10-07] MEDS: Ascorbic Acid 500 MG Tablet 1000 MG PO (08:55)
[2021-10-07] MEDS: Azithromycin 250 MG Tablet 500 MG PO (08:55)
[2021-10-07] MEDS: Isosorbide Mononitrate 30 MG Tablet PO (08:55)
[2021-10-07] MEDS: Cholecalciferol (VIT D3) 25 MCG TABLET (1,000 UNITS) 50 MCG PO (08:55)
[2021-10-07] MEDS: amLODIPine 10 MG Tablet PO (08:55)
[2021-10-07] MEDS: Carvedilol 25 MG Tablet PO (08:55)
[2021-10-07] MEDS: Cyanocobalamin 500 MCG Tablet 1000 MCG PO (08:56)
[2021-10-07] MEDS: Docusate Sodium 100 MG Capsule PO ×3 (08:56→21:05)
[2021-10-07] MEDS: Folic Acid 1 MG Tablet PO (08:56)
[2021-10-07] MEDS: Levothyroxine 50 MCG Tablet PO (08:56)
[2021-10-07] MEDS: Ramipril 10 MG Capsule PO (08:56)
[2021-10-07] MEDS: Ferrous Sulfate 325 MG Tablet PO (08:56)
[2021-10-07] MEDS: predniSONE 20 MG Tablet 40 MG PO (09:06)
[2021-10-07] MEDS: Furosemide 40 MG Tablet PO (09:06)
--- NOTE | 2021-10-07 11:29 | CASEMGMT ---
This RN CM to room as is asking about HHC and then pt/ had numerous questions. Pt/ aware that plan is for HHC SOC on 10/09/21 and that they will contact pt/ to set up time. HHC info also to be placed on pt d/c instructions and aware. Pt states he is on 5L home oxygen and per pt/, he normally uses his portable concentrator throughout the day and his home concentrator is set up with his bipap for at night. Call to [place] at [facility] [place] and he states pt's order is for 5L cont and he is aware that if pt qualifies for increased oxygen that he may need new tubing/set up, voices understanding. Pt also asks about getting into home and an ambulance to go home as he isn't sure he can get up steps into bedroom. Advised pt/ that ambulance would be self pay as pt is ambulatory and this RN CM is unsure that ambulance would take pt up/down steps to get him into bedroom of home, voice understanding. Pt states he would like to discharge today but is still currently on 6l at rest. Jessie GILLESPIE aware that pt will need to be tested on 5L at rest and with ambulation, voices understanding. Therapy notified to do steps with pt and to attempt to see pt again as they tried this am and pt refused, voice understanding. Pt/ voice no further questions/concerns/needs. CM to follow. Octavio GILLESPIE CM
[2021-10-07 11:40] LABS: Bedside Glucose 138 mg/dL (70-110)
[2021-10-07] MEDS: Ipratropium/Albuterol Sulfate 3 ML AMPUL.NEB INHALATION ×2 (11:40→19:21)
--- NOTE | 2021-10-07 16:09 | PN.HOSP_ITS ---
Subjective Subjective Feels better today, he wants his IVs to transition to steroids to prednisone and his Lasix to p.o. Objective Data Objective Data Vital Signs: Vital Signs Temp Pulse Resp BP Pulse Ox 98.1 F 68 20 H 137/56 H 93 10/07/21 13:51 10/07/21 14:31 10/07/21 13:51 10/07/21 13:51 10/07/21 13:51 Oxygen Flow Rate (L/min) [ 6 AMBULATING with Oxygen #2] Oxygen Flow Rate (L/min) [ 5 AMBULATING with Oxygen #1] Oxygen Flow Rate (L/min) [At 5 REST with Oxygen] Oxygen Flow Rate (L/min) 6 Oxygen Delivery Method Nasal Cannula Weight: 269 lb 2.951 oz Body Mass Index (BMI) 39.7 Intake & Output: Intake and Output for Last 24 Hours 10/06/21 10/07/21 10/08/21 03:59 03:59 03:59 Intake Total 1200 / 1200 1230 / 1230 480 / 480 Output Total 3325 / 3325 1350 / 1350 Balance -2125 / -2125 -120 / -120 480 / 480 Lab / Micro Data Result Diagrams: 10/07/21 05:56 10/07/21 05:56 Labs: Laboratory Results - last 24 hr 10/06/21 16:12: Glucose 729 H* 10/06/21 20:33: POC Glucose > 500 H* 10/06/21 20:35: POC Glucose > 500 H* 10/06/21 21:15: Glucose 735 H* 10/07/21 05:56: WBC 14.9 H, RBC 4.32 L, Hgb 11.5 L, Hct 35.9 L, MCV 83.1, MCH 26.6 L, MCHC 32.0, RDW Std Deviation 51.6 H, RDW Coeff of Teresa 17.3 H, Plt Count 284, MPV 10.0, Immature Gran % (Auto) 0.400, Neut % (Auto) 70.9 H, Lymph % (Auto) 18.4 L, [place] % (Auto) 9.4, Eos % (Auto) 0.6, Baso % (Auto) 0.3, Absolute Neuts (auto) 10.6 H, Absolute Lymphs (auto) 2.73, Nucleated RBC % 0 10/07/21 05:56: Sodium 139, Potassium 4.1, Chloride 104, Carbon Dioxide 27.0, Anion Gap 8, BUN 30 H, Creatinine 0.98, Estim Creat Clear Calc 62.12, Est GFR (MDRD) Af Amer 95, Est GFR (MDRD) Non-Af 78, BUN/Creatinine Ratio 30.5 H, Glucose 205 H, Calcium 9.1 10/07/21 06:51: POC Glucose 166 H 10/07/21 11:31: POC Glucose 138 H Micro: Microbiology 10/04/21 16:15 Nasal Secretion SARS-CoV-2 Antigen (Rapid) - Final Physical Exam Const alert, oriented x3 and no apparent distress General Appearance: cooperative HEENT normocephalic and moist oral mucous membranes Eyes PERRL, EOMs intact bilaterally and conjunctivae normal Neck supple and no JVD Resp normal respiratory effort, no retractions and no use of accessory muscles Auscultation: diminished lung sounds; Negative for crackles, rales, rhonchi or wheezes Cardio regular rate, regular rhythm, S1 normal heart sound, S2 normal heart sound and no murmurs GI soft to palpation, non-tender and non-distended; Negative for hepatosplenomegaly Extremity General Extremity: edema; Negative for clubbing or cyanosis Skin no rashes or lesions noted Neuro no focal motor deficits and no sensory deficits noted Psych affect normal Appearance: appropriate Assessment & Plan Assessment/Plan (1) Acute heart failure: (2) Respiratory failure, acute and chronic: PLAN: #Acute on chronic hypoxic respiratory failure likely due to acute diastolic heart failure and COPD exacerbation * Admit to PCU. B WEB PRODUCTION ASSISTANT was 164 but patient is also obese so this may be falsely low. * Chest x-ray showed evidence of pulmonary edema. EKG showed first-degree AV block * Monitor intake and output. Fluid restriction 1500 cc daily. * Put on a 2 g low-sodium diet. * 2D echo with an EF of 55% and stage I diastolic dysfunction * Wean off of BiPAP as tolerated * Cycle troponins. Initial Covid antigen test was negative. PCR test negative. * Will hold off on his Aldactone secondary to history of hyperkalemia. Continue with Lasix * We will continue with breathing treatments as well as steroids secondary to t he concern for possible COPD exacerbation #Type 2 diabetes mellitus: * He is now currently significantly hyperglycemic therefore will place him on Lantus 45 units twice daily and 20 units with meals, will make adjustments as necessary * Insulin sliding scale. Accu-Cheks AC at bedtime. * A1c in June was 7.5 #Hypothyroidism: On Synthroid #Chronic respiratory failure due to COPD: * Usually on 5 L at home but now on BiPAP. Breathing treatments bronchodilators. #History of right carotid endarterectomy: Stable. Not on statin due to history of allergy #Peripheral artery disease: Stable. #KELSEY: on BIPAP qhs #History of abdominal aortic aneurysm: stable. To follow up with PCP on outpatie nt basis. #Hypertension: on amlodipine and carvedilol as well as ramipril #GERD: On PPI DVT: Lovenox Charges/Coding Visit Charges Inpatient E&M: 82821 Subs Hosp L2
[2021-10-07 17:06] LABS: Bedside Glucose 373 mg/dL (70-110)
[2021-10-07] MEDS: Tamsulosin HCl 0.4 MG Capsule PO (21:05)
[2021-10-08] VITALS (11 sets, daily range): BP systolic 132–145; BP diastolic 58–71; PULSE 61–83; RESP 14–23; TEMP 36.6–36.8; O2SAT 87–97
[2021-10-08] MEDS: Insulin Lispro 100 UNIT/ML INSULN.PEN SC ×2 (02:26→11:47)
[2021-10-08 02:36] LABS: Bedside Glucose 265 mg/dL (70-110)
[2021-10-08] MEDS: Docusate Sodium 100 MG Capsule PO ×2 (06:34→13:44)
[2021-10-08] MEDS: Levothyroxine 50 MCG Tablet PO (06:34)
[2021-10-08 06:40] LABS: Bedside Glucose 165 mg/dL (70-110)
[2021-10-08 07:21] LABS: Bedside Glucose > 500 mg/dL (70-110)
[2021-10-08 07:21] LABS: Bedside Glucose > 500 mg/dL (70-110)
[2021-10-08] MEDS: Ipratropium/Albuterol Sulfate 3 ML AMPUL.NEB INHALATION ×2 (07:23→10:31)
[2021-10-08 08:08] LABS: Anion Gap 7 (5-15); BUN 27 mg/dL (7-18); BUN/Creat Ratio 33.5 RATIO (10-20); Calcium,Total 8.5 mg/dL (8.5-10.1); Chloride 105 mmol/L (98-107); EST Glomerular Filtration Rate 98 mL/min (>60); Est Glom Filt Rate - Afr Amer 119 mL/min (>60); Glucose 142 mg/dL (74-106); Potassium 4.1 mmol/L (3.5-5.1); Sodium Level 137 mmol/L (136-145)
[2021-10-08] MEDS: Cholecalciferol (VIT D3) 25 MCG TABLET (1,000 UNITS) 50 MCG PO (08:20)
[2021-10-08] MEDS: Cyanocobalamin 500 MCG Tablet 1000 MCG PO (08:20)
[2021-10-08] MEDS: Pantoprazole Sodium 20 MG Tablet PO (08:21)
[2021-10-08] MEDS: Ramipril 10 MG Capsule PO (08:21)
[2021-10-08] MEDS: Ascorbic Acid 500 MG Tablet 1000 MG PO (08:21)
[2021-10-08] MEDS: amLODIPine 10 MG Tablet PO (08:21)
[2021-10-08] MEDS: Isosorbide Mononitrate 30 MG Tablet PO (08:21)
[2021-10-08] MEDS: Ferrous Sulfate 325 MG Tablet PO (08:21)
[2021-10-08] MEDS: Furosemide 40 MG Tablet PO (08:21)
[2021-10-08] MEDS: Carvedilol 25 MG Tablet PO (08:21)
[2021-10-08] MEDS: predniSONE 20 MG Tablet 40 MG PO (08:21)
[2021-10-08] MEDS: Insulin Lispro 100 UNIT/ML INSULN.PEN 20 UNIT SC ×2 (08:24→11:46)
[2021-10-08 12:01] LABS: Bedside Glucose 272 mg/dL (70-110)
--- NOTE | 2021-10-08 15:07 | CASEMGMT ---
Pt qualifies for 5L at rest and 6L w/ exertion, which is an increase in his home oxygen and [place] [facility] to Mariela at [facility] to update on all, voices understanding. states she plans to take pt home with his portable concentrator and then [facility] [place] get ahold of them to get tubing, larger concentrator set up in home. Mikaela at [facility] updated on pt discharge and plan is for start of care tomorrow. voices no further questions/concerns/needs and states no concerns getting pt into car and home today. Octavio GILLESPIE CM
--- NOTE | 2021-10-08 15:18 | PCM.DC ---
Discharge Instructions Diet Discharge Diet: Low fat / Low cholesterol, 6 Cup Fluid Restriction, 2000 mg Sodium Diet and Carb Control Diet Activity Discharge Activity: Return to Normal Activity Dressing / Incision Call your doctor if you observe: Fever of 101 or Higher, Shortness of breath, Dizziness, Fainting spells, Swelling in the ankles, Chest pain and Increased palpitations (irregular heartbeat) Follow Up Care Test Results: Test results from this visit will be discussed in further detail at your follow-up appointment, if applicable. Discharge Plan Admission Admit Date/Time: 10/04/21 18:35 Attending Provider: Eddie Perez Primary Care Provider: Rufino Cintron Discharge Orders/Prescriptions Prescriptions: New furosemide 40 mg Tablet 40 mg PO DAILY Qty: 30 RF: 0 prednisone 20 mg Tablet 40 mg PO BREAKFAST Qty: 14 RF: 0 albuterol sulfate 90 mcg/actuation HFA aerosol inhaler 2 puff inhalation Q6H PRN (Reason: shortness of breath or wheezing) Qty: 8.5 RF: 0 Continued metformin 850 MG tablet 850 mg PO TIDCM RF: 0 ascorbic acid (vitamin C) 500 MG tablet 1,000 mg PO DAILY@0800 RF: 0 esomeprazole magnesium 22.3 MG capsule,delayed release(DR/EC) 20 mg PO DAILY RF: 0 exenatide 10 MCG/0.04 ML syringe 10 mcg subcut BID RF: 0 folic acid 0.8 MG capsule 0.8 mg PO SUWE RF: 0 cholecalciferol (vitamin D3) 1,000 UNIT tablet 2,000 unit PO DAILY RF: 0 L.acidoph, paracasei,B. lactis 1 EACH capsule 1 ea PO DAILY RF: 0 rosuvastatin 20 MG tablet 10 mg PO DAILY RF: 0 isosorbide mononitrate 30 mg tablet extended release 24 hr 30 mg PO DAILY RF: 0 cyanocobalamin (vitamin B-12) [Vitamin B-12] 1,000 mcg Tablet 1,000 mcg PO DAILY RF: 0 tamsulosin 0.4 mg capsule 0.4 mg PO DAILY RF: 0 amlodipine 10 mg tablet 10 mg PO DAILY RF: 0 levothyroxine 50 mcg tablet 50 mcg PO DAILY RF: 0 ferrous sulfate [FeroSul] 325 mg (65 mg iron) tablet 325 mg PO DAILY RF: 0 hydrochlorothiazide 25 mg tablet 25 mg PO DAILY RF: 0 simethicone 80 mg Tablet,Chewable 80 mg PO QHS RF: 0 coenzyme Q10 [Co Q-10] 200 mg Capsule 200 mg PO DAILY RF: 0 Anoro Ellipta 62.5-25 mcg/actuation blister with device 1 inh INHALATION DAILY RF: 0 carvedilol 12.5 MG tablet 25 mg PO DAILY RF: 0 docusate sodium 100 MG capsule 100 mg PO TID RF: 0 ramipril 10 MG capsule 10 mg PO DAILY RF: 0 insulin lispro 100 UNIT/ML insulin pen 34 unit SQ DINNER Qty: 0 RF: 0 Lantus Solostar U-100 Insulin 100 unit/mL (3 mL) insulin pen 60 unit SUBCUT LUNCH Qty: 0 RF: 0 Held insulin lispro 100 UNIT/ML insulin pen 17 unit SQ LUNCH RF: 0 Hold Instructions: Resume on 10/16/21. Restart once the steroids are discontinued insulin lispro [Humalog KwikPen Insulin] 100 unit/mL insulin pen 17 unit SUBCUT BREAKFAST RF: 0 Hold Instructions: Resume on 10/16/21. Restart once steroids are discontinued Discontinued spironolactone 25 mg tablet 25 mg PO QODAY RF: 0 Referrals / Follow Up: Rufino Cintron [Primary Care Provider] - Within 1 Week Disposition Disposition (needs filled in before D/C Order can be placed): Home, Self Care
--- NOTE | 2021-10-08 15:25 | DS.PCM_ITS ---
Providers Date of Admission: 10/04/21 Primary Care Physician: Rufino Cintron Reason For Visit: ACUTE ON CHRONIC RESP FAILURE DUE TO Diagnosis Discharge Diagnosis (1) Acute heart failure: Status: Acute Code(s): I50.9 - Heart failure, unspecified (2) Respiratory failure, acute and chronic: Status: Chronic Code(s): J96.20 - Acute and chronic respiratory failure, unspecified whether with hypoxia or hypercapnia Medications at Discharge Home Medications mikal Nixon B. lactis 1 ea PO DAILY 12/23/15 ascorbic acid (vitamin C) 1,000 mg PO DAILY@0800 12/23/15 cholecalciferol (vitamin D3) 2,000 unit PO DAILY 12/23/15 esomeprazole magnesium 20 mg PO DAILY 12/23/15 exenatide 10 mcg SUBCUT BID 12/23/15 folic acid 0.8 mg PO SUWE 12/23/15 insulin lispro 17 unit SQ LUNCH 12/23/15 metformin 850 mg PO TIDCM 12/23/15 rosuvastatin 10 mg PO DAILY 10/04/16 Anoro Ellipta 1 inh INHALATION DAILY 10/04/21 amlodipine 10 mg PO DAILY 10/04/21 carvedilol 25 mg PO DAILY 10/04/21 coenzyme Q10 [Co Q-10] 200 mg PO DAILY 10/04/21 cyanocobalamin (vitamin B-12) [Vitamin B-12] 1,000 mcg PO DAILY 10/04/21 docusate sodium 100 mg PO TID 10/04/21 ferrous sulfate [FeroSul] 325 mg PO DAILY 10/04/21 hydrochlorothiazide 25 mg PO DAILY 10/04/21 insulin lispro [Humalog KwikPen Insulin] 17 unit SUBCUT BREAKFAST 10/04/21 isosorbide mononitrate 30 mg PO DAILY 10/04/21 levothyroxine 50 mcg PO DAILY 10/04/21 ramipril 10 mg PO DAILY 10/04/21 simethicone 80 mg PO QHS 10/04/21 tamsulosin 0.4 mg PO DAILY 10/04/21 Lantus Solostar U-100 Insulin 60 unit SUBCUT LUNCH #0 ml 10/08/21 albuterol sulfate 2 puff INHALATION Q6H PRN #8.5 g 10/08/21 furosemide 40 mg PO DAILY #30 tab 10/08/21 insulin lispro 34 unit SQ DINNER #0 ml 10/08/21 prednisone 40 mg PO BREAKFAST #14 tab 10/08/21 Hospital Course Operations None Procedures 2-D Echocardiogram Summary of Care Provided Minutes Spent on Discharge: 60 Hospital Course: Per HPI: RAMON MORENO, is a 80 M who with an extensive PMH as outlined who presents via the ED on 10/04/2021 with a complaint of shortness of breath which had been going on for 3 days prior to admission. He had previously been on a water pill, but his potassium was elevated so he was taken off of this. I suspect his potassium was rather low though. He denied any chest pain but had associated lower extremity edema which was worsening. He does have chronic respiratory failure due to COPD and is on 5L of oxygen at baseline, but had been requiring more than this. EKG showed first degree AV block, and CXR showed evidence of pulmonary edema. BMP showed sodium of 142, K of 5.1, Cr of 1.03; CBC showed wbc of 14.4, Hb of 12.7 and platelets of 331. BNP was 64.8. He is on BIPAP. He is being admitted to be managed for acute on chronic hypoxic respiratory failure likely due to acute heart failure of unknown EF. Hospital Course: #Acute on chronic hypoxic respiratory failure likely due to acute diastolic heart failure and COPD exacerbation Admit to PCU. B [employer] SH[employer] CUTTER was 164 but patient is also obese so this may be falsely low. Chest x-ray showed evidence of pulmonary edema. EKG showed first-degree AV block Monitor intake and output. Fluid restriction 1500 cc daily. Put on a 2 g low-sodium diet. 2D echo with an EF of 55% and stage I diastolic dysfunction Wean off of BiPAP as tolerated Cycle troponins. Initial Covid antigen test was negative. PCR test negative. Will hold off on his Aldactone secondary to history of hyperkalemia. Continue with Lasix We will continue with breathing treatments as well as steroids secondary to the concern for possible COPD exacerbation 10/08/2021: Feels better today, he did have an ambulatory pulse ox which did demonstrate the need of 6 L to maintain an oxygen saturation of 91%. His baseline oxygen requirements of 5 L. We will discontinue his Aldactone secon eusebio to his previous issues with hyperkalemia, it does appear that this has been changed to every other day however at this point we will continue with his hydrochlorothiazide and Lasix. We will also plan on a week of prednisone and I did discuss with him the adjustments he needs to make to his insulin dosing during the week and then he can go back to his baseline dosing once steroids are discontinued. I continue to encourage cessation of tobacco use as well as adjusting his diet including a fluid restriction as well as salt restriction. I discussed with him and his the plan for discharge today and they expressed understanding of the risk and benefits of going home and would like to go home today. #Type 2 diabetes mellitus: He is now currently significantly hyperglycemic therefore will place him on Lantus 45 units twice daily and 20 units with meals, will make adjustments as necessary Insulin sliding scale. Accu-Cheks AC at bedtime. A1c in June was 7.5 #Hypothyroidism: On Synthroid #Chronic respiratory failure due to COPD: Usually on 5 L at home but now on BiPAP. Breathing treatments bronchodilators. #History of right carotid endarterectomy: Stable. Not on statin due to history of allergy #Peripheral artery disease: Stable. #KELSEY: on BIPAP qhs #History of abdominal aortic aneurysm: stable. To follow up with PCP on outpatient basis. #Hypertension: on amlodipine and carvedilol as well as ramipril #GERD: On PPI Physical Exam Narrative Const alert, oriented x3 and no apparent distress General Appearance: cooperative HEENT normocephalic and moist oral mucous membranes Eyes PERRL, EOMs intact bilaterally and conjunctivae normal Neck supple and no JVD Resp normal respiratory effort, no retractions and no use of accessory muscles Auscultation: diminished lung sounds; Negative for crackles, rales, rhonchi or wheezes Cardio regular rate, regular rhythm, S1 normal heart sound, S2 normal heart sound and no murmurs GI soft to palpation, non-tender and non-distended; Negative for hepatosplenomegaly Extremity General Extremity: edema; Negative for clubbing or cyanosis Skin no rashes or lesions noted Neuro no focal motor deficits and no sensory deficits noted Psych affect normal Appearance: appropriate Weight / BMI Weight Weight: 267 lb 3.204 oz Body Mass Index (BMI) 39.7 ABG / Lab / Microbiology Data Result Diagrams: 10/07/21 05:56 10/08/21 07:06 Laboratory: Laboratory Results - last 24 hr 10/07/21 16:58: POC Glucose 373 H 10/07/21 21:11: POC Glucose > 500 H* 10/07/21 21:14: POC Glucose > 500 H* 10/08/21 02:24: POC Glucose 265 H 10/08/21 05:54: POC Glucose 165 H 10/08/21 07:06: Sodium 137, Potassium 4.1, Chloride 105, Carbon Dioxide 25.0, Anion Gap 7, BUN 27 H, Creatinine 0.80, Estim Creat Clear Calc 76.10, Est GFR (MDRD) Af Amer 119, Est GFR (MDRD) Non-Af 98, BUN/Creatinine Ratio 33.5 H, Glucose 142 H, Calcium 8.5 10/08/21 11:43: POC Glucose 272 H Microbiology: Microbiology 10/04/21 16:15 Nasal Secretion SARS-CoV-2 Antigen (Rapid) - Final D/C Instructions Discharge Diet: Low fat / Low cholesterol, 6 Cup Fluid Restriction, 2000 mg Sodium Diet and Carb Control Diet Call your doctor if you observe: Fever of 101 or Higher, Shortness of breath, Dizziness, Fainting spells, Swelling in the ankles, Chest pain and Increased palpitations (irregular heartbeat) Meaningful Use Info Meaningful Use Diagnoses (Choose all that apply): None applicable Discharge Plan Admission Admit Date/Time: 10/04/21 18:35 Attending Provider: Eddie Perez Primary Care Provider: Rufino Cintron Discharge Orders/Prescriptions Prescriptions: New furosemide 40 mg Tablet 40 mg PO DAILY Qty: 30 RF: 0 prednisone 20 mg Tablet 40 mg PO BREAKFAST Qty: 14 RF: 0 albuterol sulfate 90 mcg/actuation HFA aerosol inhaler 2 puff inhalation Q6H PRN (Reason: shortness of breath or wheezing) Qty: 8.5 RF: 0 Continued metformin 850 MG tablet 850 mg PO TIDCM RF: 0 ascorbic acid (vitamin C) 500 MG tablet 1,000 mg PO DAILY@0800 RF: 0 esomeprazole magnesium 22.3 MG capsule,delayed release(DR/EC) 20 mg PO DAILY RF: 0 exenatide 10 MCG/0.04 ML syringe 10 mcg subcut BID RF: 0 folic acid 0.8 MG capsule 0.8 mg PO SUWE RF: 0 cholecalciferol (vitamin D3) 1,000 UNIT tablet 2,000 unit PO DAILY RF: 0 L.acidoph, paracasei,B. lactis 1 EACH capsule 1 ea PO DAILY RF: 0 rosuvastatin 20 MG tablet 10 mg PO DAILY RF: 0 isosorbide mononitrate 30 mg tablet extended release 24 hr 30 mg PO DAILY RF: 0 cyanocobalamin (vitamin B-12) [Vitamin B-12] 1,000 mcg Tablet 1,000 mcg PO DAILY RF: 0 tamsulosin 0.4 mg capsule 0.4 mg PO DAILY RF: 0 amlodipine 10 mg tablet 10 mg PO DAILY RF: 0 levothyroxine 50 mcg tablet 50 mcg PO DAILY RF: 0 ferrous sulfate [FeroSul] 325 mg (65 mg iron) tablet 325 mg PO DAILY RF: 0 hydrochlorothiazide 25 mg tablet 25 mg PO DAILY RF: 0 simethicone 80 mg Tablet,Chewable 80 mg PO QHS RF: 0 coenzyme Q10 [Co Q-10] 200 mg Capsule 200 mg PO DAILY RF: 0 Anoro Ellipta 62.5-25 mcg/actuation blister with device 1 inh INHALATION DAILY RF: 0 carvedilol 12.5 MG tablet 25 mg PO DAILY RF: 0 docusate sodium 100 MG capsule 100 mg PO TID RF: 0 ramipril 10 MG capsule 10 mg PO DAILY RF: 0 insulin lispro 100 UNIT/ML insulin pen 34 unit SQ DINNER Qty: 0 RF: 0 Lantus Solostar U-100 Insulin 100 unit/mL (3 mL) insulin pen 60 unit SUBCUT LUNCH Qty: 0 RF: 0 Held insulin lispro 100 UNIT/ML insulin pen 17 unit SQ LUNCH RF: 0 Hold Instructions: Resume on 10/16/21. Restart once the steroids are discontinued insulin lispro [Humalog KwikPen Insulin] 100 unit/mL insulin pen 17 unit SUBCUT BREAKFAST RF: 0 Hold Instructions: Resume on 10/16/21. Restart once steroids are discontinued Discontinued spironolactone 25 mg tablet 25 mg PO QODAY RF: 0 Referrals / Follow Up: Rufino Cintron [Primary Care Provider] - Within 1 Week Disposition Disposition (needs filled in before D/C Order can be placed): Home, Self Care Charges/Coding Visit Charges Inpatient E&M: 16684 Disch Hosp
--- NOTE | 2021-10-09 10:35 | CASEMGMT ---
This JOSE MIGUEL BLANC received call from Mariela at [facility] [place] that [place]/ are refusing for larger concentrator to be placed in home as his current concentrator only goes to 5L and pt needs 6L w/ exertion. Mariela states that her manager of global even called to talk with pt and he is still refusing, so the max pt will be able to use is 5L w/ exertion. [facility] JOSE MIGUEL BLANC
== END 2021-10-08 16:33 | disposition home health service (06) | DRG 291 ==
LOC: ED 18:31 → PCU 19:01
PROVIDERS: Hospitalist; Admitting Provider Student in an Organized Health Care Education/Training Program; Emergency Provider Student in an Organized Health Care Education/Training Program; Visit Provider Family Medicine
DX: I11.0 Hypertensive heart disease with heart failure (principal); J96.21 Acute and chronic respiratory failure with hypoxia; I50.31 Acute diastolic (congestive) heart failure; J44.1 Chronic obstructive pulmonary disease with (acute) exacerbation; E11.649 Type 2 diabetes mellitus with hypoglycemia without coma; E11.65 Type 2 diabetes mellitus with hyperglycemia; E11.51 Type 2 diabetes mellitus with diabetic peripheral angiopathy without gangrene; Z79.4 Long term (current) use of insulin; E03.9 Hypothyroidism, unspecified; K21.9 Gastro-esophageal reflux disease without esophagitis; G47.33 Obstructive sleep apnea (adult) (pediatric); F17.210 Nicotine dependence, cigarettes, uncomplicated; Z20.822 Contact with and (suspected) exposure to COVID-19; E66.9 Obesity, unspecified; Z68.39 Body mass index [BMI] 39.0-39.9, adult; Z99.81 Dependence on supplemental oxygen; Z79.890 Hormone replacement therapy
CPT/HCPCS: 36415; 71045; 80048; 82947; 82962; 83880; 84484; 85025; 87426; 87635; 93005; 93306; 94002; 94003; 94640; 94760; 97162; 97166; 97530; 97535; 97802; 99285; A4216; J1940; U0003; U0005

== ENCOUNTER 2021-10-21 09:23 | Outpatient (CLI) | payer MEDICARE, OTHER, SELFPAY ==
[2021-10-21 11:36] LABS: Absolute Lymphocyte Count 2.98 X10^3/uL (0.83-4.51); Absolute Neutrophil Count 11.5 X10^3/uL (2.0-7.7); Basophil# 0.05 X10^3/uL; Basophil% 0.3 % (0-1); Eosinophil# 0.25 X10^3/uL; Eosinophils% 1.6 % (0-5); Hematocrit 40.3 % (40-54); Hemoglobin 12.7 g/dL (13.0-16.5); Lymphocyte # 2.98 X10^3/ul (0.83-4.51); Lymphocyte % 18.6 % (19-41); Mean Corp Hgb Conc 31.5 g/dL (32-36); Mean Corpuscular Hgb 27.1 pg (27.0-32.0); Mean Corpuscular Volume 85.9 fL (80-94); Mean Platelet Vol. 10.2 fl (6.2-12.0); Monocyte# 1.01 X10^3/uL; Monocyte% 6.3 % (0-10); NRBC Flagged by Analyzer 0.2 % (0-5); Neutrophil # 11.49 X10^3/uL (2.7-7.7); Neutrophil % 71.9 % (47-70); Platelet Count 259 K/mm3 (150-450); RBC Distribution Width SD 56.1 fl (35.1-43.9); Red Blood Count 4.69 M/mm3 (4.6-6.2)
[2021-10-21 12:06] LABS: Vitamin B12 650 pg/mL (211-911)
[2021-10-21 12:10] LABS: Anion Gap 10 (5-15); BUN 23 mg/dL (7-18); Calcium,Total 8.7 mg/dL (8.5-10.1); Chloride 104 mmol/L (98-107); Creatinine, Serum 1.21 mg/dL (0.70-1.30); EST Glomerular Filtration Rate 62 mL/min (>60); Est Glom Filt Rate - Afr Amer 74 mL/min (>60); Glucose 287 mg/dL (74-106); Iron 41 ug/dL (65-175); Iron Binding Capacity,Total 326 ug/dL (250-450); Potassium 4.7 mmol/L (3.5-5.1); Sodium Level 136 mmol/L (136-145); Thyroid Stim Hormone (TSH) 4.72 uIU/mL (0.358-3.74)
== END 2021-10-21 23:59 | disposition short-term general hospital (02) ==
LOC: LAB 09:27
PROVIDERS: Visit Provider Family Medicine
DX: I65.23 Occlusion and stenosis of bilateral carotid arteries (principal); I10 Essential (primary) hypertension; E78.5 Hyperlipidemia, unspecified
CPT/HCPCS: 36415; 80048; 82607; 83036; 83540; 83550; 84443; 85025

== ENCOUNTER 2021-11-13 07:44 | Outpatient (CLI) | payer MEDICARE, OTHER, SELFPAY ==
[2021-11-13 12:10] LABS: BNP,B-Type NATRIURETIC PEPTIDE 38.6 pg/mL (0-100)
== END 2021-11-13 23:59 | disposition home or self-care (01) ==
LOC: LAB 07:47
PROVIDERS: Visit Provider Internal Medicine Pulmonary Disease
DX: I50.31 Acute diastolic (congestive) heart failure (principal)
CPT/HCPCS: 36415; 83880

== ENCOUNTER → 2022-01-26 | Outpatient (CLI) | payer MEDICARE, OTHER, SELFPAY ==
[2022-01-26 10:32] LABS: Absolute Lymphocyte Count 3.31 X10^3/uL (0.83-4.51); Absolute Neutrophil Count 7.8 X10^3/uL (2.0-7.7); Basophil# 0.08 X10^3/uL; Basophil% 0.6 % (0-1); Eosinophil# 0.32 X10^3/uL; Eosinophils% 2.6 % (0-5); Lymphocyte # 3.31 X10^3/ul (0.83-4.51); Lymphocyte % 26.6 % (19-41); Mean Corpuscular Hgb 26.7 pg (27.0-32.0); Mean Corpuscular Volume 86.4 fL (80-94); Mean Platelet Vol. 9.8 fl (6.2-12.0); Monocyte# 0.87 X10^3/uL; NRBC Flagged by Analyzer 0 % (0-5); Neutrophil # 7.81 X10^3/uL (2.7-7.7); Neutrophil % 62.7 % (47-70); Platelet Count 259 K/mm3 (150-450); RBC Distribution Width CV 16.6 % (11.6-14.6); RBC Distribution Width SD 51.9 fl (35.1-43.9); Red Blood Count 4.86 M/mm3 (4.6-6.2); White Blood Count 12.5 K/mm3 (4.4-11.0)
[2022-01-26 10:53] LABS: Hemoglobin A1c 7.8 % (3.8-5.6)
[2022-01-26 11:25] LABS: BNP,B-Type NATRIURETIC PEPTIDE 58.8 pg/mL (0-100)
[2022-01-26 11:36] LABS: Anion Gap 8 (5-15); BUN 20 mg/dL (7-18); BUN/Creat Ratio 16.5 RATIO (10-20); Calcium,Total 8.7 mg/dL (8.5-10.1); Chloride 103 mmol/L (98-107); Creatinine, Serum 1.21 mg/dL (0.70-1.30); EST Glomerular Filtration Rate 62 mL/min (>60); Est Glom Filt Rate - Afr Amer 74 mL/min (>60); Glucose 174 mg/dL (74-106); Iron 48 ug/dL (65-175); Iron Binding Capacity,Total 374 ug/dL (250-450); Magnesium 1.5 mg/dL (1.6-2.6); Potassium 4.2 mmol/L (3.5-5.1); Sodium Level 134 mmol/L (136-145); Thyroid Stim Hormone (TSH) 2.43 uIU/mL (0.358-3.74)
== END | disposition home or self-care (01) ==
LOC: LAB 08:32
PROVIDERS: Visit Provider Internal Medicine Pulmonary Disease
DX: E03.9 Hypothyroidism, unspecified (principal); I50.32 Chronic diastolic (congestive) heart failure; E11.29 Type 2 diabetes mellitus with other diabetic kidney complication; Z79.4 Long term (current) use of insulin; D50.9 Iron deficiency anemia, unspecified; R80.9 Proteinuria, unspecified
CPT/HCPCS: 36415; 80048; 83036; 83540; 83550; 83735; 83880; 84443; 85025

== ENCOUNTER → 2022-02-19 | Outpatient (CLI) | payer MEDICARE, OTHER, SELFPAY ==
[2022-02-19 11:26] LABS: Erythrocyte Sedimentation Rate 47 mm/hr (0-20)
[2022-02-19 11:54] LABS: CPK Total, Creatine Kinase 42 U/L (39-308); Magnesium 1.7 mg/dL (1.6-2.6)
== END | disposition home or self-care (01) ==
LOC: LAB 10:19
PROVIDERS: Visit Provider Family Medicine
DX: M79.10 Myalgia, unspecified site (principal); E83.42 Hypomagnesemia
CPT/HCPCS: 36415; 82550; 83735; 85652

== ENCOUNTER → 2022-03-09 | Outpatient (CLI) | payer MEDICARE, OTHER, SELFPAY ==
[2022-03-09 11:26] LABS: Erythrocyte Sedimentation Rate 43 mm/hr (0-20)
[2022-03-09 11:29] LABS: Absolute Neutrophil Count 7.8 X10^3/uL (2.0-7.7); Basophil% 0.8 % (0-1); Eosinophil# 0.31 X10^3/uL; Eosinophils% 2.5 % (0-5); Hematocrit 42.9 % (40-54); Hemoglobin 13.5 g/dL (13.0-16.5); Lymphocyte % 26.7 % (19-41); Mean Corp Hgb Conc 31.5 g/dL (32-36); Mean Corpuscular Hgb 26.6 pg (27.0-32.0); Mean Corpuscular Volume 84.4 fL (80-94); Mean Platelet Vol. 10.4 fl (6.2-12.0); Monocyte# 0.83 X10^3/uL; Monocyte% 6.7 % (0-10); NRBC Flagged by Analyzer 0 % (0-5); Neutrophil # 7.76 X10^3/uL (2.7-7.7); Neutrophil % 62.9 % (47-70); Platelet Count 284 K/mm3 (150-450); RBC Distribution Width CV 17.2 % (11.6-14.6); RBC Distribution Width SD 52.4 fl (35.1-43.9); Red Blood Count 5.08 M/mm3 (4.6-6.2); White Blood Count 12.4 K/mm3 (4.4-11.0)
[2022-03-09 11:38] LABS: Vitamin D,25 Hydroxy 34.7 ng/mL
[2022-03-09 12:07] LABS: Anion Gap 9 (5-15); BUN 22 mg/dL (7-18); BUN/Creat Ratio 18.3 RATIO (10-20); Calcium,Total 9.2 mg/dL (8.5-10.1); Chloride 106 mmol/L (98-107); EST Glomerular Filtration Rate 62 mL/min (>60); Est Glom Filt Rate - Afr Amer 75 mL/min (>60); Glucose 184 mg/dL (74-106); Iron 50 ug/dL (65-175); Iron Binding Capacity,Total 413 ug/dL (250-450); Magnesium 1.9 mg/dL (1.6-2.6); Potassium 4.6 mmol/L (3.5-5.1); Rheumatoid Factor < 10.0 IU/mL (<15); Sodium Level 136 mmol/L (136-145)
== END | disposition home or self-care (01) ==
PROVIDERS: Visit Provider Family Medicine
DX: M79.10 Myalgia, unspecified site (principal); D64.9 Anemia, unspecified; E55.9 Vitamin D deficiency, unspecified
CPT/HCPCS: 36415; 80048; 82306; 83540; 83550; 83735; 85025; 85652; 86038; 86140; 86431

== ENCOUNTER → 2022-07-15 | Outpatient (CLI) | payer MEDICARE, OTHER, SELFPAY ==
[2022-07-15 10:03] LABS: Absolute Lymphocyte Count 3.33 X10^3/uL (0.83-4.51); Absolute Neutrophil Count 7.6 X10^3/uL (2.0-7.7); Basophil# 0.06 X10^3/uL; Basophil% 0.5 % (0-1); Eosinophil# 0.38 X10^3/uL; Eosinophils% 3.1 % (0-5); Hematocrit 41.8 % (40-54); Hemoglobin 13.2 g/dL (13.0-16.5); Lymphocyte # 3.33 X10^3/ul (0.83-4.51); Lymphocyte % 27.1 % (19-41); Mean Corp Hgb Conc 31.6 g/dL (32-36); Mean Corpuscular Volume 85.7 fL (80-94); Monocyte# 0.83 X10^3/uL; Monocyte% 6.8 % (0-10); NRBC Flagged by Analyzer 0 % (0-5); Neutrophil # 7.62 X10^3/uL (2.7-7.7); Platelet Count 269 K/mm3 (150-450); RBC Distribution Width CV 17.5 % (11.6-14.6); RBC Distribution Width SD 54.9 fl (35.1-43.9); Red Blood Count 4.88 M/mm3 (4.6-6.2); White Blood Count 12.3 K/mm3 (4.4-11.0)
[2022-07-15 10:21] LABS: Vitamin B12 642 pg/mL (211-911); Vitamin D,25 Hydroxy 46.8 ng/mL
[2022-07-15 10:28] LABS: Albumin, Serum 3.1 g/dL (3.2-5.0); BUN 20 mg/dL (7-18); Creatinine, Serum 1.25 mg/dL (0.70-1.30); EST Glomerular Filtration Rate 59 mL/min (>60); Est Glom Filt Rate - Afr Amer 72 mL/min (>60); Glucose 157 mg/dL (74-106)
[2022-07-15 10:29] LABS: ALB/GLOB Ratio 0.8 RATIO (0.9-2.4); AST(SGOT) 14 U/L (15-37); Alanine Aminotransfer ALT/SGPT 21 U/L (16-61); Alkaline Phosphatase 74 U/L (45-117); Anion Gap 8 (5-15); Calcium,Total 9.2 mg/dL (8.5-10.1); Chloride 107 mmol/L (98-107); Cholesterol 125 mg/dL (200); Globulin 3.9 g/dL (2.2-4.2); High Density Lipoprotein 33 mg/dL; Iron 51 ug/dL (65-175); Iron Binding Capacity,Total 320 ug/dL (250-450); Magnesium 1.7 mg/dL (1.6-2.6); PERCENT IRON SATURATION 15.9 % (15.0-55.0); Potassium 4.4 mmol/L (3.5-5.1); Sodium Level 138 mmol/L (136-145); Thyroid Stim Hormone (TSH) 2.87 uIU/mL (0.358-3.74); Triglycerides 228 mg/dL; Very Low Density Lipoprotein 46 mg/dL (5-40)
[2022-07-15 10:37] LABS: Hemoglobin A1c 8.1 % (3.8-5.6)
[2022-07-15 10:48] LABS: Microalbumin,Random Urine 11.2 mg/L (NO RANGE EST.); Microalbumin:Creatinine Ratio 17.4 mg/g CRE (<30 mg/g CRE)
== END | disposition home or self-care (01) ==
LOC: LAB 09:37
PROVIDERS: Visit Provider Family Medicine
DX: D50.9 Iron deficiency anemia, unspecified (principal); E11.29 Type 2 diabetes mellitus with other diabetic kidney complication; E11.69 Type 2 diabetes mellitus with other specified complication; Z79.4 Long term (current) use of insulin; R80.9 Proteinuria, unspecified; I10 Essential (primary) hypertension; E78.5 Hyperlipidemia, unspecified; E03.9 Hypothyroidism, unspecified; E55.9 Vitamin D deficiency, unspecified; E53.8 Deficiency of other specified B group vitamins
CPT/HCPCS: 36415; 80053; 80061; 82043; 82306; 82570; 82607; 83036; 83540; 83550; 83735; 84443; 85025

== ENCOUNTER → 2023-01-13 | Outpatient (CLI) | payer MEDICARE, OTHER, SELFPAY ==
[2023-01-13 10:30] LABS: Absolute Neutrophil Count 7.3 X10^3/uL (2.0-7.7); Basophil# 0.11 X10^3/uL; Basophil% 0.9 % (0-1); Eosinophil# 0.32 X10^3/uL; Eosinophils% 2.6 % (0-5); Hemoglobin 14.2 g/dL (13.0-16.5); Lymphocyte % 29.9 % (19-41); Mean Corp Hgb Conc 30.9 g/dL (32-36); Mean Corpuscular Hgb 26.8 pg (27.0-32.0); Monocyte# 0.86 X10^3/uL; NRBC Flagged by Analyzer 0 % (0-5); Neutrophil # 7.29 X10^3/uL (2.7-7.7); Neutrophil % 58.9 % (47-70); Platelet Count 266 K/mm3 (150-450); RBC Distribution Width CV 17.4 % (11.6-14.6); RBC Distribution Width SD 54.4 fl (35.1-43.9); Red Blood Count 5.29 M/mm3 (4.6-6.2); White Blood Count 12.4 K/mm3 (4.4-11.0)
[2023-01-13 10:57] LABS: ALB/GLOB Ratio 0.8 RATIO (0.9-2.4); AST(SGOT) 18 U/L (15-37); Alanine Aminotransfer ALT/SGPT 29 U/L (16-61); Albumin, Serum 3.3 g/dL (3.2-5.0); Alkaline Phosphatase 86 U/L (45-117); Anion Gap 9 (5-15); BUN 21 mg/dL (7-18); BUN/Creat Ratio 16.2 RATIO (10-20); Chloride 104 mmol/L (98-107); Cholesterol 138 mg/dL (200); EST Glomerular Filtration Rate 56 mL/min (>60); Est Glom Filt Rate - Afr Amer 68 mL/min (>60); Globulin 4.1 g/dL (2.2-4.2); Glucose 150 mg/dL (74-106); High Density Lipoprotein 35 mg/dL; Iron 61 ug/dL (65-175); Iron Binding Capacity,Total 378 ug/dL (250-450); PERCENT IRON SATURATION 16.1 % (15.0-55.0); Potassium 4.3 mmol/L (3.5-5.1); Protein, Total 7.4 g/dL (6.4-8.2); Sodium Level 135 mmol/L (136-145); Triglycerides 235 mg/dL; Very Low Density Lipoprotein 47 mg/dL (5-40)
[2023-01-13 11:00] LABS: Hemoglobin A1c 7.9 % (3.8-5.6)
[2023-01-13 11:48] LABS: Vitamin B12 847 pg/mL (211-911); Vitamin D,25 Hydroxy 40.9 ng/mL
== END | disposition home or self-care (01) ==
LOC: LAB 09:01
PROVIDERS: Visit Provider Family Medicine
DX: E11.51 Type 2 diabetes mellitus with diabetic peripheral angiopathy without gangrene (principal); E11.29 Type 2 diabetes mellitus with other diabetic kidney complication; Z79.4 Long term (current) use of insulin; E53.8 Deficiency of other specified B group vitamins; E55.9 Vitamin D deficiency, unspecified; E03.9 Hypothyroidism, unspecified; R80.9 Proteinuria, unspecified; D50.9 Iron deficiency anemia, unspecified
CPT/HCPCS: 36415; 80053; 80061; 82306; 82607; 83036; 83540; 83550; 84443; 85025

== ENCOUNTER → 2023-04-15 | Outpatient (CLI) | payer MEDICARE, OTHER, SELFPAY ==
[2023-04-15 12:06] LABS: Absolute Lymphocyte Count 3.42 X10^3/uL (0.83-4.51); Absolute Neutrophil Count 8.3 X10^3/uL (2.0-7.7); Basophil% 0.8 % (0-1); Eosinophil# 0.33 X10^3/uL; Eosinophils% 2.5 % (0-5); Hemoglobin 14.2 g/dL (13.0-16.5); Lymphocyte # 3.42 X10^3/ul (0.83-4.51); Mean Corp Hgb Conc 31.6 g/dL (32-36); Mean Corpuscular Hgb 27.5 pg (27.0-32.0); Mean Corpuscular Volume 87.2 fL (80-94); Mean Platelet Vol. 10.4 fl (6.2-12.0); Monocyte# 0.89 X10^3/uL; Monocyte% 6.8 % (0-10); NRBC Flagged by Analyzer 0 % (0-5); Neutrophil # 8.32 X10^3/uL (2.7-7.7); Neutrophil % 63.3 % (47-70); Platelet Count 265 K/mm3 (150-450); RBC Distribution Width CV 17.2 % (11.6-14.6); RBC Distribution Width SD 54.6 fl (35.1-43.9); Red Blood Count 5.16 M/mm3 (4.6-6.2); White Blood Count 13.1 K/mm3 (4.4-11.0)
[2023-04-15 12:25] LABS: ALB/GLOB Ratio 0.8 RATIO (0.9-2.4); AST(SGOT) 17 U/L (15-37); Alanine Aminotransfer ALT/SGPT 23 U/L (16-61); Albumin, Serum 3.3 g/dL (3.2-5.0); Alkaline Phosphatase 88 U/L (45-117); Anion Gap 11 (5-15); BUN 16 mg/dL (7-18); BUN/Creat Ratio 12.9 RATIO (10-20); Calcium,Total 9.3 mg/dL (8.5-10.1); Chloride 103 mmol/L (98-107); Creatinine, Serum 1.24 mg/dL (0.70-1.30); EST Glomerular Filtration Rate 60 mL/min (>60); Est Glom Filt Rate - Afr Amer 72 mL/min (>60); Globulin 4.1 g/dL (2.2-4.2); Glucose 174 mg/dL (74-106); Potassium 4.4 mmol/L (3.5-5.1); Protein, Total 7.4 g/dL (6.4-8.2); Sodium Level 136 mmol/L (136-145)
[2023-04-15 12:58] LABS: Hemoglobin A1c 7.3 % (3.8-5.6)
== END | disposition home or self-care (01) ==
LOC: LAB 09:39
PROVIDERS: Visit Provider Family Medicine
DX: E11.51 Type 2 diabetes mellitus with diabetic peripheral angiopathy without gangrene (principal); Z79.4 Long term (current) use of insulin
CPT/HCPCS: 36415; 80053; 83036; 85025

== ENCOUNTER → 2023-05-11 | Outpatient (CLI) | payer MEDICARE, OTHER, SELFPAY ==
[2023-05-11 10:53] LABS: Absolute Lymphocyte Count 3.16 X10^3/uL (0.83-4.51); Absolute Neutrophil Count 7.2 X10^3/uL (2.0-7.7); Basophil% 0.9 % (0-1); Eosinophil# 0.38 X10^3/uL; Eosinophils% 3.3 % (0-5); Hematocrit 44.8 % (40-54); Lymphocyte # 3.16 X10^3/ul (0.83-4.51); Mean Corp Hgb Conc 31.3 g/dL (32-36); Mean Corpuscular Hgb 26.9 pg (27.0-32.0); Mean Corpuscular Volume 86.2 fL (80-94); Mean Platelet Vol. 9.6 fl (6.2-12.0); Monocyte# 0.78 X10^3/uL; Monocyte% 6.7 % (0-10); NRBC Flagged by Analyzer 0 % (0-5); Neutrophil # 7.22 X10^3/uL (2.7-7.7); Neutrophil % 61.7 % (47-70); Platelet Count 236 K/mm3 (150-450); RBC Distribution Width CV 17.2 % (11.6-14.6); RBC Distribution Width SD 53.2 fl (35.1-43.9); White Blood Count 11.7 K/mm3 (4.4-11.0)
[2023-05-11 11:14] LABS: Anion Gap 10 (5-15); BUN 19 mg/dL (7-18); BUN/Creat Ratio 15.4 RATIO (10-20); Calcium,Total 8.9 mg/dL (8.5-10.1); Chloride 104 mmol/L (98-107); Creatinine, Serum 1.23 mg/dL (0.70-1.30); EST Glomerular Filtration Rate 60 mL/min (>60); Est Glom Filt Rate - Afr Amer 73 mL/min (>60); Glucose 158 mg/dL (74-106); Potassium 4.2 mmol/L (3.5-5.1); Sodium Level 138 mmol/L (136-145)
[2023-05-11 11:18] LABS: Vitamin B12 726 pg/mL (211-911)
== END | disposition home or self-care (01) ==
PROVIDERS: Referring Provider Family Medicine; Visit Provider Family Medicine
DX: E53.8 Deficiency of other specified B group vitamins (principal); I50.32 Chronic diastolic (congestive) heart failure
CPT/HCPCS: 36415; 80048; 82607; 85025

== ENCOUNTER 2023-08-15 10:15 | Outpatient (CLI) | payer MEDICARE, OTHER, SELFPAY | END 2023-08-15 23:59 | disposition home or self-care (01) | LOC: LAB 10:20 | PROVIDERS: Visit Provider Family Medicine | DX: Z00.00 Encounter for general adult medical examination without abnormal findings (principal) ==

== ENCOUNTER → 2023-08-22 | Outpatient (CLI) | payer MEDICARE, OTHER, SELFPAY ==
[2023-08-22 09:00] LABS: Erythrocyte Sedimentation Rate 19 mm/hr (0-20)
[2023-08-22 09:02] LABS: Absolute Lymphocyte Count 3.36 X10^3/uL (0.83-4.51); Basophil# 0.11 X10^3/uL; Basophil% 0.9 % (0-1); Eosinophil# 0.49 X10^3/uL; Eosinophils% 4.1 % (0-5); Hematocrit 43.6 % (40-54); Hemoglobin 13.5 g/dL (13.0-16.5); Lymphocyte # 3.36 X10^3/ul (0.83-4.51); Lymphocyte % 28.5 % (19-41); Mean Corpuscular Hgb 26.9 pg (27.0-32.0); Mean Corpuscular Volume 86.9 fL (80-94); Mean Platelet Vol. 9.7 fl (6.2-12.0); Monocyte# 0.78 X10^3/uL; Monocyte% 6.6 % (0-10); NRBC Flagged by Analyzer 0 % (0-5); Neutrophil % 59.3 % (47-70); Platelet Count 255 K/mm3 (150-450); RBC Distribution Width CV 17.5 % (11.6-14.6); RBC Distribution Width SD 55.3 fl (35.1-43.9); Red Blood Count 5.02 M/mm3 (4.6-6.2); White Blood Count 11.8 K/mm3 (4.4-11.0)
[2023-08-22 09:18] LABS: ALB/GLOB Ratio 0.8 RATIO (0.9-2.4); AST(SGOT) 11 U/L (15-37); Alanine Aminotransfer ALT/SGPT 19 U/L (16-61); Albumin, Serum 3.1 g/dL (3.2-5.0); Alkaline Phosphatase 71 U/L (45-117); Anion Gap 11 (5-15); BUN 15 mg/dL (7-18); BUN/Creat Ratio 11.5 RATIO (10-20); Calcium,Total 8.6 mg/dL (8.5-10.1); Chloride 106 mmol/L (98-107); Cholesterol 111 mg/dL (200); Creatinine, Serum 1.31 mg/dL (0.70-1.30); EST Glomerular Filtration Rate 56 mL/min (>60); Est Glom Filt Rate - Afr Amer 68 mL/min (>60); Globulin 3.7 g/dL (2.2-4.2); Glucose 198 mg/dL (74-106); High Density Lipoprotein 34 mg/dL; Iron 60 ug/dL (65-175); Iron Binding Capacity,Total 287 ug/dL (250-450); Magnesium 1.7 mg/dL (1.6-2.6); PERCENT IRON SATURATION 20.9 % (15.0-55.0); Potassium 4.8 mmol/L (3.5-5.1); Protein, Total 6.8 g/dL (6.4-8.2); Sodium Level 138 mmol/L (136-145); Thyroid Stim Hormone (TSH) 4.31 uIU/mL (0.358-3.74); Triglycerides 204 mg/dL; Very Low Density Lipoprotein 41 mg/dL (5-40)
[2023-08-22 09:21] LABS: Vitamin B12 701 pg/mL (211-911)
[2023-08-22 12:58] LABS: Microalbumin,Random Urine 6.3 mg/L (NO RANGE EST.); Microalbumin:Creatinine Ratio 8.4 mg/g CRE (<30 mg/g CRE)
== END | disposition home or self-care (01) ==
LOC: LAB 12:07 → LABSPEC 12:09
PROVIDERS: PCP Family Medicine; Referring Provider Family Medicine; Visit Provider Family Medicine
DX: E11.51 Type 2 diabetes mellitus with diabetic peripheral angiopathy without gangrene (principal); I50.32 Chronic diastolic (congestive) heart failure; I11.0 Hypertensive heart disease with heart failure; E11.69 Type 2 diabetes mellitus with other specified complication; Z79.4 Long term (current) use of insulin; E78.5 Hyperlipidemia, unspecified; E53.8 Deficiency of other specified B group vitamins; D50.9 Iron deficiency anemia, unspecified; E03.9 Hypothyroidism, unspecified; M79.10 Myalgia, unspecified site
CPT/HCPCS: 36415; 80053; 80061; 82043; 82570; 82607; 83540; 83550; 83735; 84443; 85025; 85652

== ENCOUNTER → 2023-11-02 | Outpatient (CLI) | payer MEDICARE, OTHER, SELFPAY ==
[2023-11-02 10:00] LABS: Absolute Lymphocyte Count 3.15 X10^3/uL (0.83-4.51); Absolute Neutrophil Count 7.3 X10^3/uL (2.0-7.7); Basophil# 0.08 X10^3/uL; Basophil% 0.7 % (0-1); Eosinophil# 0.37 X10^3/uL; Eosinophils% 3.2 % (0-5); Hematocrit 44.2 % (40-54); Hemoglobin 13.7 g/dL (13.0-16.5); Lymphocyte # 3.15 X10^3/ul (0.83-4.51); Mean Corpuscular Hgb 27.2 pg (27.0-32.0); Mean Corpuscular Volume 87.9 fL (80-94); Mean Platelet Vol. 9.6 fl (6.2-12.0); Monocyte# 0.72 X10^3/uL; Monocyte% 6.2 % (0-10); NRBC Flagged by Analyzer 0 % (0-5); Neutrophil # 7.29 X10^3/uL (2.7-7.7); Neutrophil % 62.5 % (47-70); Platelet Count 267 K/mm3 (150-450); RBC Distribution Width CV 16.9 % (11.6-14.6); RBC Distribution Width SD 53.3 fl (35.1-43.9); Red Blood Count 5.03 M/mm3 (4.6-6.2); White Blood Count 11.7 K/mm3 (4.4-11.0)
[2023-11-02 10:57] LABS: Vitamin B12 661 pg/mL (211-911)
[2023-11-02 10:59] LABS: Anion Gap 7 (5-15); BUN 15 mg/dL (7-18); BUN/Creat Ratio 12.3 RATIO (10-20); Calcium,Total 9.2 mg/dL (8.5-10.1); Chloride 109 mmol/L (98-107); Creatinine, Serum 1.22 mg/dL (0.70-1.30); EST Glomerular Filtration Rate 61 mL/min (>60); Est Glom Filt Rate - Afr Amer 73 mL/min (>60); Glucose 177 mg/dL (74-106); Potassium 4.2 mmol/L (3.5-5.1); Sodium Level 138 mmol/L (136-145); Thyroid Stim Hormone (TSH) 5.13 uIU/mL (0.358-3.74)
[2023-11-02 11:16] LABS: Hemoglobin A1c 7.4 % (3.8-5.6)
== END | disposition home or self-care (01) ==
LOC: LAB 09:02
PROVIDERS: PCP Family Medicine; Visit Provider Family Medicine
DX: E53.8 Deficiency of other specified B group vitamins (principal); E11.51 Type 2 diabetes mellitus with diabetic peripheral angiopathy without gangrene; E11.29 Type 2 diabetes mellitus with other diabetic kidney complication; Z79.4 Long term (current) use of insulin; R80.9 Proteinuria, unspecified; E03.9 Hypothyroidism, unspecified
CPT/HCPCS: 36415; 80048; 82607; 83036; 84443; 85025

== ENCOUNTER → 2023-12-14 | Outpatient (CLI) | payer MEDICARE, OTHER, SELFPAY ==
[2023-12-14 10:39] LABS: Thyroid Stim Hormone (TSH) 3.45 uIU/mL (0.358-3.74)
== END | disposition home or self-care (01) ==
LOC: LAB 09:17
PROVIDERS: PCP Family Medicine; Referring Provider Family Medicine; Visit Provider Family Medicine
DX: E03.9 Hypothyroidism, unspecified (principal)
CPT/HCPCS: 36415; 84443

== ENCOUNTER → 2024-02-09 | Outpatient (CLI) | payer MEDICARE, OTHER, SELFPAY ==
[2024-02-09 10:44] LABS: Mucous, Urine 0 SEEN /hpf (<or=2+); Red Blood Cells-Urine 0 SEEN /hpf (0-5); Squamous Epithelial Cells - UA 0 SEEN /hpf (0-5); White Blood Cells 0 SEEN /hpf (0-5)
[2024-02-09 10:48] LABS: Absolute Lymphocyte Count 3.28 X10^3/uL (0.83-4.51); Basophil# 0.09 X10^3/uL; Basophil% 0.7 % (0-1); Eosinophil# 0.28 X10^3/uL; Eosinophils% 2.2 % (0-5); Hematocrit 43.9 % (40-54); Hemoglobin 13.3 g/dL (13.0-16.5); Lymphocyte # 3.28 X10^3/ul (0.83-4.51); Mean Corp Hgb Conc 30.3 g/dL (32-36); Mean Corpuscular Hgb 26.5 pg (27.0-32.0); Mean Corpuscular Volume 87.6 fL (80-94); Mean Platelet Vol. 10.1 fl (6.2-12.0); Monocyte# 0.87 X10^3/uL; Monocyte% 6.9 % (0-10); NRBC Flagged by Analyzer 0 % (0-5); Neutrophil # 8.01 X10^3/uL (2.7-7.7); Neutrophil % 63.6 % (47-70); Platelet Count 265 K/mm3 (150-450); RBC Distribution Width CV 16.5 % (11.6-14.6); RBC Distribution Width SD 52.7 fl (35.1-43.9); Red Blood Count 5.01 M/mm3 (4.6-6.2); White Blood Count 12.6 K/mm3 (4.4-11.0)
[2024-02-09 10:51] LABS: Color, Urine Straw (Yellow); Glucose, Dipstick 1000 mg/dl (Normal); Ketone-Dipstick Negative (Negative); Leukocyte Esterase-Dipstick Negative /ul (Negative); Nitrite-Dipstick Negative (Negative); Occult Blood-Urine Negative /ul (Negative); Protein-Dipstick Negative (Negative); Urine Bilirubin Dipstick Negative (Negative); Urine Clarity Clear (Clear); Urine Urobilinogen Normal (Normal)
[2024-02-09 11:13] LABS: Bacteria 1+ /hpf (None Seen)
[2024-02-09 11:23] LABS: ALB/GLOB Ratio 0.8 RATIO (0.9-2.4); AST(SGOT) 12 U/L (15-37); Alanine Aminotransfer ALT/SGPT 21 U/L (16-61); Albumin, Serum 3.2 g/dL (3.2-5.0); Alkaline Phosphatase 81 U/L (45-117); Anion Gap 9 (5-15); BUN 24 mg/dL (7-18); BUN/Creat Ratio 15.2 RATIO (10-20); Calcium,Total 8.9 mg/dL (8.5-10.1); Chloride 101 mmol/L (98-107); Creatinine, Serum 1.58 mg/dL (0.70-1.30); EST Glomerular Filtration Rate 45 mL/min (>60); Est Glom Filt Rate - Afr Amer 54 mL/min (>60); Glucose 289 mg/dL (74-106); Potassium 4.8 mmol/L (3.5-5.1); Protein, Total 7.2 g/dL (6.4-8.2); Sodium Level 133 mmol/L (136-145); Thyroid Stim Hormone (TSH) 2.93 uIU/mL (0.358-3.74)
== END | disposition home or self-care (01) ==
PROVIDERS: PCP Family Medicine; Visit Provider Family Medicine
DX: R39.15 Urgency of urination (principal); I50.9 Heart failure, unspecified; I11.0 Hypertensive heart disease with heart failure; E03.9 Hypothyroidism, unspecified
CPT/HCPCS: 36415; 80053; 81001; 84443; 85025; 87077; 87086; 87088; 87186

== ENCOUNTER → 2024-06-20 | Outpatient (CLI) | payer MEDICARE, OTHER, SELFPAY ==
[2024-06-20 10:51] LABS: Absolute Lymphocyte Count 3.05 X10^3/uL (0.83-4.51); Absolute Neutrophil Count 8.8 X10^3/uL (2.0-7.7); Basophil% 0.8 % (0-1); Eosinophils% 2.3 % (0-5); Hematocrit 43.6 % (40-54); Hemoglobin 13.6 g/dL (13.0-16.5); Lymphocyte # 3.05 X10^3/ul (0.83-4.51); Lymphocyte % 23.2 % (19-41); Mean Corp Hgb Conc 31.2 g/dL (32-36); Mean Corpuscular Hgb 26.9 pg (27.0-32.0); Mean Corpuscular Volume 86.3 fL (80-94); Mean Platelet Vol. 10.1 fl (6.2-12.0); Monocyte# 0.85 X10^3/uL; Monocyte% 6.5 % (0-10); NRBC Flagged by Analyzer 0 % (0-5); Neutrophil # 8.78 X10^3/uL (2.7-7.7); Neutrophil % 66.7 % (47-70); Platelet Count 240 K/mm3 (150-450); RBC Distribution Width CV 17.2 % (11.6-14.6); Red Blood Count 5.05 M/mm3 (4.6-6.2); White Blood Count 13.1 K/mm3 (4.4-11.0)
[2024-06-20 11:14] LABS: Hemoglobin A1c 7.4 % (3.8-5.6)
== END | disposition home or self-care (01) ==
LOC: LAB 08:01
PROVIDERS: PCP Family Medicine; Visit Provider Family Medicine
DX: D50.9 Iron deficiency anemia, unspecified (principal); E11.51 Type 2 diabetes mellitus with diabetic peripheral angiopathy without gangrene; Z79.4 Long term (current) use of insulin; E53.8 Deficiency of other specified B group vitamins; E55.9 Vitamin D deficiency, unspecified
CPT/HCPCS: 36415; 83036; 85025

== ENCOUNTER → 2024-06-22 | Outpatient (CLI) | payer MEDICARE, OTHER, SELFPAY ==
[2024-06-22 11:23] LABS: Microalbumin,Random Urine < 5.0 mg/L (NO RANGE EST.)
[2024-06-22 11:27] LABS: Vitamin B12 876 pg/mL (211-911); Vitamin D,25 Hydroxy 42.3 ng/mL
[2024-06-22 13:34] LABS: ALB/GLOB Ratio 0.9 RATIO (0.9-2.4); AST(SGOT) 14 U/L (15-37); Alanine Aminotransfer ALT/SGPT 22 U/L (16-61); Albumin, Serum 3.3 g/dL (3.2-5.0); Alkaline Phosphatase 87 U/L (45-117); Anion Gap 21 (5-15); BUN 26 mg/dL (7-18); BUN/Creat Ratio 15.6 RATIO (10-20); Calcium,Total 9.3 mg/dL (8.5-10.1); Chloride 102 mmol/L (98-107); Cholesterol 129 mg/dL (200); Creatinine, Serum 1.67 mg/dL (0.70-1.30); EST Glomerular Filtration Rate 42 mL/min (>60); Est Glom Filt Rate - Afr Amer 51 mL/min (>60); Globulin 3.6 g/dL (2.2-4.2); Glucose 276 mg/dL (74-106); High Density Lipoprotein 37 mg/dL; Iron 60 ug/dL (65-175); Iron Binding Capacity,Total 304 ug/dL (250-450); PERCENT IRON SATURATION 19.7 % (15.0-55.0); Potassium 4.5 mmol/L (3.5-5.1); Protein, Total 6.9 g/dL (6.4-8.2); Sodium Level 136 mmol/L (136-145); Triglycerides 301 mg/dL; Very Low Density Lipoprotein 60 mg/dL (5-40)
== END | disposition home or self-care (01) ==
LOC: LAB 09:03
PROVIDERS: PCP Family Medicine; Visit Provider Family Medicine
DX: E11.51 Type 2 diabetes mellitus with diabetic peripheral angiopathy without gangrene (principal); Z79.4 Long term (current) use of insulin; E03.9 Hypothyroidism, unspecified; E55.9 Vitamin D deficiency, unspecified; E53.8 Deficiency of other specified B group vitamins; D50.9 Iron deficiency anemia, unspecified
CPT/HCPCS: 80053; 80061; 82043; 82306; 82570; 82607; 83540; 83550; 84443

== ENCOUNTER → 2024-12-19 | Outpatient (CLI) | payer MEDICARE, OTHER, SELFPAY ==
[2024-12-19 09:49] LABS: Mucous, Urine 0 SEEN /hpf (<or=2+); Squamous Epithelial Cells - UA 0 SEEN /hpf (0-5)
[2024-12-19 10:24] LABS: Color, Urine Yellow (Yellow); Glucose, Dipstick 1000 mg/dl (Normal); Ketone-Dipstick Negative (Negative); Leukocyte Esterase-Dipstick 100 /ul (Negative); Nitrite-Dipstick Negative (Negative); Occult Blood-Urine Negative /ul (Negative); Protein-Dipstick Negative (Negative); Urine Bilirubin Dipstick Negative (Negative); Urine Clarity Clear (Clear); Urine Urobilinogen Normal (Normal)
[2024-12-19 10:32] LABS: Bacteria 1+ /hpf (None Seen); Red Blood Cells-Urine 0 SEEN /hpf (0-5); White Blood Cells 0-5 SEEN /hpf (0-5)
[2024-12-19 18:30] LABS: Microalbumin,Random Urine < 12.0 mg/L (NO RANGE EST.)
[2024-12-19 18:56] LABS: Microalbumin:Creatinine Ratio UNABLE TO CALCULATE mg/g CRE
[2024-12-20 09:31] LABS: Erythrocyte Sedimentation Rate 36 mm/hr (0-20)
[2024-12-20 09:33] LABS: Hematocrit 43.4 % (40-54); Hemoglobin 13.7 g/dL (13.0-16.5); Mean Corp Hgb Conc 31.6 g/dL (32-36); Mean Corpuscular Hgb 27.2 pg (27.0-32.0); Mean Corpuscular Volume 86.3 fL (80-94); Mean Platelet Vol. 10.1 fl (6.2-12.0); Platelet Count 286 K/mm3 (150-450); RBC Distribution Width CV 17.4 % (11.6-14.6); RBC Distribution Width SD 54.4 fl (35.1-43.9); Red Blood Count 5.03 M/mm3 (4.6-6.2); White Blood Count 13.3 K/mm3 (4.4-11.0)
[2024-12-20 09:50] LABS: ALB/GLOB Ratio 1.2 RATIO (0.9-2.4); AST(SGOT) 15 U/L (<=37); Alanine Aminotransfer ALT/SGPT 14 U/L (<=46); Albumin, Serum 3.7 g/dL (3.4-4.8); Alkaline Phosphatase 74 U/L (40-129); Anion Gap 15 (5-15); BUN 25 mg/dL (4-19); BUN/Creat Ratio 16.9 RATIO (10-20); Calcium,Total 9.3 mg/dL (7.6-11.0); Carbon Dioxide 19.6 mmol/L (21.0-32.0); Chloride 100 mmol/L (98-108); Creatinine, Serum 1.46 mg/dL (0.70-1.20); EST Glomerular Filtration Rate 48 (>60); Globulin 3.2 g/dL (2.2-4.2); Glucose 140 mg/dL (70-99); Iron 40 ug/dL (65-175); Iron Binding Capacity,Total 268 ug/dL (250-450); Iron Binding Capacity,Unsat 228 ug/dL (228-428); Magnesium 1.8 mg/dL (1.5-2.2); Potassium 5.1 mmol/L (3.3-5.1); Protein, Total 6.9 g/dL (5.9-8.4); Sodium Level 135 mmol/L (133-145); Total Bilirubin 0.24 mg/dL (0.00-1.30)
[2024-12-20 10:26] LABS: Hemoglobin A1c 8.9 % (<=5.6)
[2024-12-20 10:33] LABS: Cholesterol 119 mg/dL (<=200); High Density Lipoprotein 35 mg/dL; Low Density Lipoprotein Calc. 48 mg/dL; Triglycerides 179 mg/dL; Very Low Density Lipoprotein 36 mg/dL (5-40); cholesterol:hdl ratio screen 3.38
[2024-12-20 10:35] LABS: Ferritin 63 ng/mL (37-417); Vitamin B12 984 pg/mL (180-914); Vitamin D,25 Hydroxy 37.5 ng/mL (30-100)
== END | disposition home or self-care (01) ==
LOC: LAB 09:01
PROVIDERS: PCP Family Medicine; Visit Provider Family Medicine
DX: E11.51 Type 2 diabetes mellitus with diabetic peripheral angiopathy without gangrene (principal); Z79.4 Long term (current) use of insulin; D50.9 Iron deficiency anemia, unspecified; R53.83 Other fatigue; E55.9 Vitamin D deficiency, unspecified; E03.9 Hypothyroidism, unspecified; E53.8 Deficiency of other specified B group vitamins; I10 Essential (primary) hypertension
CPT/HCPCS: 36415; 80053; 80061; 81001; 82043; 82306; 82570; 82607; 82728; 83036; 83540; 83550; 83735; 84439; 84443; 85027; 85652; 87077; 87086; 87088; 87186

== ENCOUNTER → 2025-01-16 | Outpatient (CLI) | payer MEDICARE, OTHER, SELFPAY ==
[2025-01-16 10:27] LABS: Absolute Lymphocyte Count 2.94 X10^3/uL (0.83-4.51); Absolute Neutrophil Count 10.4 X10^3/uL (2.0-7.7); Basophil# 0.09 X10^3/uL; Basophil% 0.6 % (0-1); Hematocrit 42.1 % (40-54); Hemoglobin 13.6 g/dL (13.0-16.5); Lymphocyte # 2.94 X10^3/ul (0.83-4.51); Mean Corp Hgb Conc 32.3 g/dL (32-36); Mean Corpuscular Hgb 27.6 pg (27.0-32.0); Mean Corpuscular Volume 85.4 fL (80-94); Mean Platelet Vol. 9.7 fl (6.2-12.0); Monocyte# 0.98 X10^3/uL; Monocyte% 6.7 % (0-10); NRBC Flagged by Analyzer 0 % (0-5); Neutrophil # 10.35 X10^3/uL (2.7-7.7); Neutrophil % 70.2 % (47-70); Platelet Count 283 K/mm3 (150-450); RBC Distribution Width CV 17.2 % (11.6-14.6); RBC Distribution Width SD 53.6 fl (35.1-43.9); Red Blood Count 4.93 M/mm3 (4.6-6.2); White Blood Count 14.7 K/mm3 (4.4-11.0)
== END | disposition home or self-care (01) ==
LOC: LAB 09:04
PROVIDERS: PCP Family Medicine; Visit Provider Family Medicine
DX: N39.0 Urinary tract infection, site not specified (principal); D72.829 Elevated white blood cell count, unspecified; E03.9 Hypothyroidism, unspecified
CPT/HCPCS: 36415; 84443; 85025

== ENCOUNTER → 2025-01-21 | Outpatient (CLI) | payer MEDICARE, OTHER, SELFPAY ==
[2025-01-21 10:23] LABS: Bacteria 0 SEEN /hpf (None Seen); Mucous, Urine 0 SEEN /hpf (<or=2+); Red Blood Cells-Urine 0 SEEN /hpf (0-5)
[2025-01-21 10:28] LABS: Color, Urine Yellow (Yellow); Glucose, Dipstick 1000 mg/dl (Normal); Ketone-Dipstick Negative (Negative); Leukocyte Esterase-Dipstick 25 /ul (Negative); Nitrite-Dipstick Negative (Negative); Occult Blood-Urine Negative /ul (Negative); Protein-Dipstick 15 mg/dl (Negative); Urine Bilirubin Dipstick Negative (Negative); Urine Clarity Sl. Cloudy (Clear); Urine Urobilinogen Normal (Normal)
[2025-01-21 10:29] LABS: Absolute Lymphocyte Count 2.88 X10^3/uL (0.83-4.51); Absolute Neutrophil Count 10.1 X10^3/uL (2.0-7.7); Basophil# 0.09 X10^3/uL; Basophil% 0.6 % (0-1); Eosinophil# 0.26 X10^3/uL; Eosinophils% 1.8 % (0-5); Hemoglobin 13.3 g/dL (13.0-16.5); Lymphocyte # 2.88 X10^3/ul (0.83-4.51); Lymphocyte % 20.1 % (19-41); Mean Corp Hgb Conc 32.4 g/dL (32-36); Mean Corpuscular Hgb 27.1 pg (27.0-32.0); Mean Corpuscular Volume 83.7 fL (80-94); Mean Platelet Vol. 9.3 fl (6.2-12.0); Monocyte# 0.89 X10^3/uL; Monocyte% 6.2 % (0-10); NRBC Flagged by Analyzer 0 % (0-5); Neutrophil # 10.14 X10^3/uL (2.7-7.7); Neutrophil % 70.7 % (47-70); Platelet Count 267 K/mm3 (150-450); RBC Distribution Width CV 17.4 % (11.6-14.6); RBC Distribution Width SD 52.7 fl (35.1-43.9); White Blood Count 14.3 K/mm3 (4.4-11.0)
[2025-01-21 10:34] LABS: Squamous Epithelial Cells - UA 0-5 SEEN /hpf (0-5); White Blood Cells 0-5 SEEN /hpf (0-5); Yeast-Urine 2+ /hpf (None Seen)
[2025-01-22 05:07] LABS: Prealbumin 20 mg/dL (9-32)
== END | disposition home or self-care (01) ==
LOC: LAB 09:44
PROVIDERS: PCP Family Medicine; Visit Provider Family Medicine
DX: N39.0 Urinary tract infection, site not specified (principal); R63.0 Anorexia; D72.829 Elevated white blood cell count, unspecified
CPT/HCPCS: 36415; 81001; 84134; 85025; 87077; 87086; 87088; 87186

== ENCOUNTER → 2025-03-08 | Outpatient (CLI) | payer MEDICARE, OTHER, SELFPAY ==
[2025-03-08 09:45] LABS: Absolute Lymphocyte Count 2.81 X10^3/uL (0.83-4.51); Absolute Neutrophil Count 9.5 X10^3/uL (2.0-7.7); Basophil% 0.7 % (0-1); Eosinophil# 0.29 X10^3/uL; Eosinophils% 2.1 % (0-5); Hematocrit 41.7 % (40-54); Hemoglobin 13.3 g/dL (13.0-16.5); Lymphocyte # 2.81 X10^3/ul (0.83-4.51); Lymphocyte % 20.6 % (19-41); Mean Corp Hgb Conc 31.9 g/dL (32-36); Mean Corpuscular Volume 87.8 fL (80-94); Mean Platelet Vol. 9.5 fl (6.2-12.0); Monocyte# 0.85 X10^3/uL; Monocyte% 6.2 % (0-10); NRBC Flagged by Analyzer 0 % (0-5); Neutrophil # 9.52 X10^3/uL (2.7-7.7); Platelet Count 275 K/mm3 (150-450); RBC Distribution Width CV 17.6 % (11.6-14.6); RBC Distribution Width SD 56.4 fl (35.1-43.9); Red Blood Count 4.75 M/mm3 (4.6-6.2); White Blood Count 13.6 K/mm3 (4.4-11.0)
[2025-03-08 10:04] LABS: Hemoglobin A1c 8.1 % (<=5.6)
[2025-03-08 10:21] LABS: Anion Gap 16 (5-15); BUN 28 mg/dL (4-19); BUN/Creat Ratio 15.8 RATIO (10-20); Calcium,Total 9.3 mg/dL (7.6-11.0); Carbon Dioxide 21.2 mmol/L (21.0-32.0); Chloride 98 mmol/L (98-108); Creatinine, Serum 1.77 mg/dL (0.70-1.20); EST Glomerular Filtration Rate 38 (>60); Glucose 136 mg/dL (70-99); Magnesium 1.6 mg/dL (1.5-2.2); Potassium 4.3 mmol/L (3.3-5.1); Sodium Level 136 mmol/L (133-145); Vitamin B12 1122 pg/mL (180-914)
== END | disposition home or self-care (01) ==
PROVIDERS: PCP Family Medicine; Visit Provider Family Medicine
DX: E83.42 Hypomagnesemia (principal); R41.89 Other symptoms and signs involving cognitive functions and awareness; D72.829 Elevated white blood cell count, unspecified
CPT/HCPCS: 36415; 80048; 82607; 82746; 83036; 83735; 85025